=== PATIENT | male | born 1975 | race Caucasian/White ===

== ENCOUNTER 2016-03-14 15:54 | Observation (INO) ==
--- NOTE | 2016-03-14 16:14 | Emergency Department Note ---
Overdose - Lab Data Result diagrams: 03/14/16 17:23 03/14/16 17:23 Lab Results 03/14/16 03/14/16 03/14/16 Range/Units 16:42 16:42 17:23 WBC 11.5 H (4.3-11.1) K/mcL RBC 4.61 (4.19-5.50) M/mcL Hgb 14.4 (12.9-16.9) g/dL Hct 41.8 (37.5-50.1) % MCV 90.7 (83.0-100.0) fL MCH 31.2 (28.0-33.3) pg MCHC 34.4 (31.6-35.5) g/dL RDW 12.5 (11.5-14.5) % Plt Count 173 (140-400) K/mcL MPV 10.3 (9.4-12.4) fL Immature Gran % 0.2 (0-4) % Seg Neutrophils % 78.8 % Lymphocytes % 16.6 % Monocytes % 3.4 % Eosinophils % 0.7 % Basophils % 0.3 % Neutrophils # 9.1 H (1.6-8.9) K/mcL Lymphocytes # 1.9 (0.6-4.6) K/mcL Monocytes # 0.4 (0.0-1.3) K/mcL Eosinophils # 0.1 (0.0-0.6) K/mcL Basophils # 0.0 (0.0-0.2) K/mcL Sodium (136-145) mEq/L Potassium (3.5-4.5) mEq/L Chloride (98-109) mEq/L Carbon Dioxide (19-29) mEq/L BUN (8-26) mg/dL Creatinine (0.72-1.25) mg/dL Est GFR ( Amer) (> 60) Est GFR (Non-Af Amer) (> 60) BUN/Creatinine Ratio (6-26) Glucose (70-99) mg/dL POC Glucose (58-89) Calculated Osmolality (280-300) Calcium (8.6-10.8) mg/dL Total Bilirubin (0.2-1.2) mg/dL Direct Bilirubin (0.0-0.5) mg/dL Indirect Bilirubin (0.0-1.2) mg/dL AST (5-34) Units/L ALT (0-55) Units/L Alkaline Phosphatase (38-126) Units/L Serum Total Protein (6.0-8.3) g/dL Albumin (3.5-5.0) g/dL Globulin (2.4-3.5) g/dL Albumin/Globulin Ratio (1.1-2.2) Urine Color Yellow (Yellow) Urine Clarity Clear (Clear) Urine pH 7.0 (5.0-8.0) pH Units Ur Specific [place] 1.008 L (1.010-1.025) Urine Protein Negative (Neg-Trace) mg/dL Urine Glucose (UA) Normal (Normal) mg/dL Urine Ketones Negative (Negative) mg/dL Urine Blood Negative (Negative) Urine Nitrite Negative (Negative) Urine Bilirubin Negative (Negative) Urine Urobilinogen Normal (Normal) mg/dL Ur Leukocyte Esterase Negative (Negative) Salicylates (15-30) mg/dL Urine Opiates Screen Negative (Nkhduy=878) ng/mL Acetaminophen (10-30) mcg/mL Ur Barbiturates Screen Negative (Zprjxb=431) ng/mL Ur Phencyclidine Scrn Negative (Cutoff=25) ng/mL Ur Amphetamines Screen Negative (Nwaihf=7792) ng/mL U Benzodiazepines Scrn Positive H (Zijylg=955) ng/mL Urine Cocaine Screen Positive H (Cutoff= 300) ng/mL U Marijuana (THC) Screen Negative (Cutoff = 50) ng/mL Ethyl Alcohol (0-10) mg/dL 03/14/16 03/14/16 Range/Units 17:23 17:35 WBC (4.3-11.1) K/mcL RBC (4.19-5.50) M/mcL Hgb (12.9-16.9) g/dL Hct (37.5-50.1) % MCV (83.0-100.0) fL MCH (28.0-33.3) pg MCHC (31.6-35.5) g/dL RDW (11.5-14.5) % Plt Count (140-400) K/mcL MPV (9.4-12.4) fL Immature Gran % (0-4) % Seg Neutrophils % % Lymphocytes % % Monocytes % % Eosinophils % % Basophils % % Neutrophils # (1.6-8.9) K/mcL Lymphocytes # (0.6-4.6) K/mcL Monocytes # (0.0-1.3) K/mcL Eosinophils # (0.0-0.6) K/mcL Basophils # (0.0-0.2) K/mcL Sodium 140 (136-145) mEq/L Potassium 3.7 (3.5-4.5) mEq/L Chloride 108 (98-109) mEq/L Carbon Dioxide 21 (19-29) mEq/L BUN 10 (8-26) mg/dL Creatinine 0.73 (0.72-1.25) mg/dL Est GFR ( Amer) > 60 (> 60) Est GFR (Non-Af Amer) > 60 (> 60) BUN/Creatinine Ratio 14 (6-26) Glucose 124 H (70-99) mg/dL POC Glucose 108 H (58-89) Calculated Osmolality 290 (280-300) Calcium 9.0 (8.6-10.8) mg/dL Total Bilirubin 0.4 (0.2-1.2) mg/dL Direct Bilirubin 0.1 (0.0-0.5) mg/dL Indirect Bilirubin 0.3 (0.0-1.2) mg/dL AST 38 H (5-34) Units/L ALT 51 (0-55) Units/L Alkaline Phosphatase 72 (38-126) Units/L Serum Total Protein 7.1 (6.0-8.3) g/dL Albumin 3.7 (3.5-5.0) g/dL Globulin 3.4 (2.4-3.5) g/dL Albumin/Globulin Ratio 1.1 (1.1-2.2) Urine Color (Yellow) Urine Clarity (Clear) Urine pH (5.0-8.0) pH Units Ur Specific [place] (1.010-1.025) Urine Protein (Neg-Trace) mg/dL Urine Glucose (UA) (Normal) mg/dL Urine Ketones (Negative) mg/dL Urine Blood (Negative) Urine Nitrite (Negative) Urine Bilirubin (Negative) Urine Urobilinogen (Normal) mg/dL Ur Leukocyte Esterase (Negative) Salicylates < 5.0 L (15-30) mg/dL Urine Opiates Screen (Yyulkf=592) ng/mL Acetaminophen < 1.0 L (10-30) mcg/mL Ur Barbiturates Screen (Vofzcx=357) ng/mL Ur Phencyclidine Scrn (Cutoff=25) ng/mL Ur Amphetamines Screen (Fvwlpe=6511) ng/mL U Benzodiazepines Scrn (Dejkpi=846) ng/mL Urine Cocaine Screen (Cutoff= 300) ng/mL U Marijuana (THC) Screen (Cutoff = 50) ng/mL Ethyl Alcohol < 10 (0-10) mg/dL - EKG Data EKG attestation: Yes I reviewed and interpreted this EKG. EKG results narrative: EKG dated 14 Mar 2016 shows sinus rhythm with rate of 90. Normal intervals. Normal QRS. Normal axis. Tallest T-wave in precordial leads is 10mm. No previous EKG for comparison. Electrolytes pending. Overdose HPI - General Chief Complaint: ED Overdose Stated Complaint: overdose Source: EMS Limitations: altered mental status Nursing Notes Reviewed: Yes Vital Signs Reviewed: Yes - History of Present Illness HPI Narrative: Mr. Davalos, a 40yo male, presents via EMS with reported complaint: altered mentation, deafness, blindness. Patient is alone. History from EMS per patient 's girlfriend. Patient was using heroin and xanax last night. They were at [employer] today, he disappeared for a while and returned in his current state: confused, claiming blindness and deafness. At baseline, patient wears hearing aids. He has his right side hearing aid in his pocket. EMS attempted to place it into his ear however he repeatedly removed it. - Related Data Allergies Allergy/AdvReac Type Severity Reaction Status Date / Time No Known Allergies Allergy Verified 12/13/15 22:21 Limitations: ROS unobtainable due to patients medical condition Past Medical History - Past Medical History Medical history: Reports: non-contributory Psychiatric history: Reports: no psych history - Social History Smoking Status: Current every day smoker Smokeless Tobacco Status: No Alcohol use: Reports: none Drug use: Reports: cocaine, IVDU Physical Exam General: Patient is disheveled, alert, not oriented, in no acute distress. HEENT: No facial asymmetry. Head is normocephalic and atraumatic. Pupils pinpoint and fixed. Trachea midline. Cardiovascular: Heart regular rate and rhythm without clicks, rubs, gallops, or murmurs. No JVD. PMI nondisplaced. Respiratory: Symmetric chest rise with good respiratory effort. Bilateral breath sounds are clear without wheezing, crackles, or rhonchi. Abdomen: Bowel sounds present normoactive -4 quadrants. Abdomen is soft, nondistended, and nontender. No organomegaly noted. Musculoskeletal: Muscle strength 5/5 and symmetric bilaterally in upper and lower extremities. DTRs 2/4 and symmetric bilaterally in upper and lower extremities. Neuro: Cranial nerves II through XII without deficit. Sensation light touch intact. Psych: Patient's affect is appropriate for situation. - General Limitations: altered mental status General appearance: alert, in no apparent distress Course Course Narrative: On arrival, patient was slightly combative. He repeatedly stated, "I'm coherent " "I'm hydrated. I have cotton mouth. Give me something to drink." He was able to look at specific caregivers bedside as we were assessing him. He would occasionally answer direct questions. He could not state what he took or why he was here. We brought a cup of icewater with straw and showed him. He repeatedly refused, eventually swinging his arms and spilling some of the water out of a nurses hand and onto himself. Patient repeatedly stated he could not hear however his hearing aid was confirmed on, turned up, and properly placed in his ear. He again would occasionally answer verbal questions indicating he could in fact hear. Additionally, he would make specific comments on what he saw around him indicating he could also see. We continued to talk to him, explaining what we were doing and why. Continuing to ask questions to gain additional history. Security is bedside. Prior to placing IV, gave patient 2mg intranasal narcan in an attempt to calm him. Prior to administration, his pupils were fixed pinpoint. No change in pupils or affect after administration. Top of my differential is polysubstance abuse. Will perform combination of overdose and altered mentation workup looking for alternate cause of his change in mental status. As evidenced by multiple scars on both arms along venous pathways, patient has a history of IV drug abuse. As such, nursing was unable to obtain IV access peripherally for blood draw even with the use of ultrasound. Peripheral access for infusion was obtained. I performed a femoral vein draw under sterile technique under the supervision of Dr. Crowell to obtain serum laboratory samples. POC glucose 108 Labwork has returned. CBC and BMP unremarkable. Urine drug screen positive for cocaine and benzos. CT head negative. Head CT 03/14/16 16:10 IMPRESSION: No acute intracranial abnormality. D/ / Jorge Luis Pagan MD / Jorge Luis Pagan MD Interpreting Provider: Jorge Luis Pagan MD 16:30, 19:00, 19:20 Have reassess the patient; he remains comfortable, sleeping, vitals stable. Will page hospitalist for admission. Reason: polysubstance abuse with overdose , altered mentation, suggested psychiatric evaluation. Patient has been and remains stable. 19:[address] Mcfarland. She accepts the patient. No additional questions or recommendations at this time. Vital Signs Temperature 0 F L 03/14/16 15:58 Pulse Rate 0 03/14/16 15:58 Respiratory Rate 20 03/14/16 15:58 Blood Pressure 0/0 03/14/16 15:58 O2 Sat by Pulse Oximetry 0 L 03/14/16 15:58 Temperature 98.8 F 03/14/16 17:06 Pulse Rate 84 03/14/16 18:49 Respiratory Rate 95 03/14/16 18:49 Blood Pressure 105/70 03/14/16 18:49 O2 Sat by Pulse Oximetry 98 03/14/16 18:49 Oxygen Delivery Oxygen Delivery Room Air Disposition Clinical Impression: Overdose Qualifiers: Encounter type: initial encounter Injury intent: accidental or unintentional Qualified Code(s): T50.901A - Poisoning by unspecified drugs, medicaments and biological substances, accidental (unintentional), initial encounter Disposition: Admitted As Inpatient Condition: Fair Attestation Statement - Attestation Attestation: Patient was seen with resident physician. I reviewed the history, physical, assessment and plan, and agree with the findings. I also personally evaluated this patient and had [id number] time with this patient. 40-year-old male presents via EMS with a chief complaint of not acting right. Patient has known heroin addict and presents with altered mental status. History from EMS who is from his significant other states that last night they were partying at a house with a head heroin and Xanax, and then today he disappeared and came back with altered mental status. She is not sure if he ingested any other drugs. Patient repeatedly states that he is thirsty but refuses to take water and is somewhat uncooperative providing 0 history whatsoever. On examination patient' s agitated he has pinpoint pupils. His heart and lungs are normal. Abdomen is soft and nontender. Extremities are unremarkable. There is no obvious signs of traumatic injury. We will attempt to give Narcan and see the patient is just agitated from being high. [facility] is [facility] We will also do a pretty thorough workup to look for traumatic injuries or other causes of mental status change. First on differential would be polysubstance abuse. Pending the findings of the workup will determine disposition. Patient was eventually able to be medically sedated. His workup revealed cocaine and benzodiazepine abuse. He continued to have mental status change even in the face of a normal workup, and was not ready for disposition to home. We opted to admit the patient to hospital for a 24-hour observation and additional medical therapies as indicated, as well as medical observation. Hospitalist was notified and admission was arranged. I agree with resident physician assessment and plan.
[2016-03-14] MEDS ORDERED: Haloperidol Lactate 5 MG/ML VIAL ONE (16:30)
[2016-03-14] MEDS ORDERED: Haloperidol Lactate 5 MG/ML VIAL IM ONE (16:30)
[2016-03-14 16:52] LABS: Bilirubin,Urine Negative (Negative); Blood,Urine Negative (Negative); Clarity,Urine Clear (Clear); Color,Urine Yellow (Yellow); Glucose,Urine (UA) Normal (Normal); Ketones,Urine Negative (Negative); Leukocyte Esterase,Urine Negative (Negative); Nitrite,Urine Negative (Negative); Protein,Urine Negative (Neg-Trace); Specific Gravity,Urine 1.008 (1.010-1.025); Urobilinogen,Urine Normal (Normal)
[2016-03-14 16:59] LABS: Amphetamine Screen,Urine Negative ng/mL (Cutoff=1000); Barbiturate Screen,Urine Negative ng/mL (Cutoff=200); Benzodiazepines Screen,Urine Positive ng/mL (Cutoff=200); Cannabinoid Screen,Urine Negative ng/mL (Cutoff = 50); Cocaine Screen,Urine Positive ng/mL (Cutoff= 300); Opiate Screen,Urine Negative ng/mL (Cutoff=300); Phencyclidine Screen,Urine Negative ng/mL (Cutoff=25)
[2016-03-14] MEDS ORDERED: 0.9 % Sodium Chloride 1,000 ML IVC ONE (17:28)
[2016-03-14] MEDS ORDERED: *HR* LORazepam 2 MG/ML VIAL IVP ONE (17:29)
[2016-03-14 17:43] LABS: Basophils % 0.3 %; Eosinophils # 0.1 K/mcL (0.0-0.6); Eosinophils % 0.7 %; Hematocrit 41.8 % (37.5-50.1); Hemoglobin 14.4 g/dL (12.9-16.9); Immature Granulocytes % 0.2 % (0-4); Lymphocytes # 1.9 K/mcL (0.6-4.6); Lymphocytes % 16.6 %; Mean Corpuscular HGB Conc 34.4 g/dL (31.6-35.5); Mean Corpuscular Hemoglobin 31.2 pg (28.0-33.3); Mean Corpuscular Volume 90.7 fL (83.0-100.0); Mean Platelet Volume 10.3 fL (9.4-12.4); Monocytes # 0.4 K/mcL (0.0-1.3); Monocytes % 3.4 %; Neutrophils # 9.1 K/mcL (1.6-8.9); Platelet Count 173 K/mcL (140-400); Red Blood Count 4.61 M/mcL (4.19-5.50); Red Cell Distribution Width 12.5 % (11.5-14.5); Segmented Neutrophils % 78.8 %
[2016-03-14 17:54] LABS: Alanine Aminotransferase 51 Units/L (0-55); Albumin 3.7 g/dL (3.5-5.0); Albumin/Globulin Ratio 1.1 (1.1-2.2); Alkaline Phosphatase 72 Units/L (38-126); Aspartate Amino Transferase 38 Units/L (5-34); BUN/Creatinine Ratio 14 (6-26); Bilirubin,Direct 0.1 mg/dL (0.0-0.5); Bilirubin,Indirect 0.3 mg/dL (0.0-1.2); Bilirubin,Total 0.4 mg/dL (0.2-1.2); Blood Urea Nitrogen 10 mg/dL (8-26); Carbon Dioxide 21 mEq/L (19-29); Chloride 108 mEq/L (98-109); Globulin 3.4 g/dL (2.4-3.5); Glucose 124 mg/dL (70-99); Osmolality,Calculated 290 (280-300); Potassium 3.7 mEq/L (3.5-4.5); Sodium 140 mEq/L (136-145); Total Protein 7.1 g/dL (6.0-8.3); eGFR For African Americans > 60 (> 60); eGFR For Non-African Americans > 60 (> 60)
[2016-03-14 17:55] LABS: Acetaminophen < 1.0 mcg/mL (10-30); Ethanol < 10 mg/dL (0-10); Salicylate < 5.0 mg/dL (15-30)
[2016-03-14] MEDS ORDERED: Pantoprazole 40 MG VIAL IVP STA (19:47)
[2016-03-14] MEDS ORDERED: *HR* LORazepam 2 MG/ML VIAL IVP PRN (19:47)
[2016-03-14] MEDS ORDERED: Haloperidol Lactate 5 MG/ML VIAL IVP PRN (19:47)
[2016-03-14] MEDS ORDERED: Acetaminophen 325 MG TABLET PO PRN (19:47)
[2016-03-14] MEDS ORDERED: Naloxone 0.4 MG/ML INJ IVP PRN (19:47)
[2016-03-14] MEDS ORDERED: Mag Hydrox/Al Hydrox/Simeth 30 ML UDC PO PRN (19:47)
[2016-03-14] MEDS ORDERED: Ketorolac 30 MG/ML VIAL IVP PRN (19:47)
[2016-03-14] MEDS ORDERED: Albuterol 2.5 MG/3 ML NEBULIZER IH PRN (19:47)
--- NOTE | 2016-03-14 20:12 | Internal Med History&Physical ---
Date of Encounter: 03/14/16 Time of Encounter: 19:30 Assessment and Plan (1) Polysubstance dependence including opioid type drug, episodic abuse Status: Chronic . (2) Toxic metabolic encephalopathy Status: Resolved . (3) Delirium due to conditions classified elsewhere Status: Acute . (4) Positive urine drug screen Status: Acute . (5) Drug overdose, multiple drugs Status: Acute . Qualifiers: Encounter type: initial encounter Injury intent: accidental or unintentional Qualified Code(s): T50.901A - Poisoning by unspecified drugs, medicaments and biological substances, accidental (unintentional), initial encounter (6) IVDU (intravenous drug user) Status: Chronic . (7) Wears hearing aid in both ears Status: Chronic . (8) SIRS due to non-infectious process without acute organ dysfunction Status: Acute . (9) Transaminitis Status: Acute . (10) Neutrophilic leukocytosis Status: Acute . (11) Hyperglycemia without ketosis Status: Acute . (12) Chronic pain associated with significant psychosocial dysfunction Status: Chronic . (13) Hypertension Status: Chronic . Qualifiers: Hypertension type: essential hypertension Qualified Code(s): I10 - Essential (primary) hypertension (14) Degenerative arthritis Status: Chronic . Qualifiers: Osteoarthritis location: unspecified site Osteoarthritis type: unspecified Qualified Code(s): M19.90 - Unspecified osteoarthritis, unspecified site Internal Medicine - H&P: HPI Chief complaint: Altered mental status. Admitted From: Emergency Dept Plans for Post Hospital Care: Home History of present illness: Mr. Davalos is a 40 year old male with history significant for congenital hearing loss/bilateral hearing aid dependent, hypertension, degenerative osteoarthritis/chronic musculoskeletal pain syndrome, generalized anxiety disorder, H/o MRSA infection, polysubstance dependency-abuse (cocaine, benzodiazepines, opiates)/IVDU and non-IVDU, nicotine dependency The patient was visited and interviewed and examined. Patient is acutely intoxicated/encephalopathic and delirious secondary to polysubstance overdose. Historical details collected from EMS triage, ED triage and information provided by patient's female conjugal partner. Patient is admitted to [facility] via the emergency department when he presents by EMS services with acute alteration in mental status. Patient possesses congenital hearing loss in his hearing aid dependent and claims blindness. He presents a history of heroin use and Xanax usage night of presentation. He is acutely intoxicated.. It is reported that he and his girlfriend without dominant AND he disappeared for a while and when he returned he was in this current state of confusion blind and deaf. Nose and at baseline he does wear bilateral hearing aids. Findings in the ED: Temperature 98.8 pulse 84 respirations 20 BP 105/70. O2 saturation 98% per room air. WBC 11.5 hemoglobin 14.4 platelets 173,000. Differential showed an increase in neutrophils. Metabolic panel normal. BUN 10 creatinine 0.7. Carbon dioxide 21. Glucose 124. Osmolality 290. AST 38 ALT 51. Albumin 3.7 total 7.1. Salicylates less than 5. Acetaminophen less than 1. Ethyl alcohol less than 10. EKG sinus rhythm. 90 bpm. No acute ischemic changes. Urinalysis negative. Urine drug screen positive benzodiazepine and cocaine. CT head scan demonstrated no acute intracranial abnormality. No evidence for hemorrhage mass effect or midline shift fluid collection hydrocephalus noted. No evidence for visualized skull soft tissue injury or fracture. Preliminary impression suggests acute toxic metabolic encephalopathy with delirium. The patient presents with recreational drug overdose. This was unintentional with no evidence to suggest ideation/efforts motivated for self- harm. History unfortunately highlights several episodes like this acute narcotic overdose requiring hospitalization supportive care interventions and acute detoxification. His presentation is complicated by congenital hearing loss and legal blindness Systemic inflammatory response syndrome criteria and present at admission. Transaminitis leukocytosis and hyperglycemia demonstrated as part of inflammatory cascade. The patient presents risk for acute clinical decline and morbidity given his presenting chief complaints, findings and comorbid conditions. Workup and treatment progress comprehensively.. Cumulative laboratory and radiographic data base was reviewed, considered and discussed. Pertinent ancillary medical records including ECW and PCI documentation was reviewed and considered. Given the patient's presenting concerns, past medical history, clinical findings and symptoms, he is admitted at this time will undergo further evaluation and disposition. Orders were written as per the computerized physician emergency room orderly system.......................................................................... .................... Consultative opinions will be sought as clinical circumstances justify. Procedures/case management consultation. Pain management needs will be addressed. Laboratory and radiographic data base will be updated as appropriate. Studies include: Cultures of blood urine and sputum, UA UDS, serum drug screen, CPK, LDH , prolactin, cardiac injury panel, BNP, PT/INR/APTT, Ddimer, metabolic and hematologic panel, mag, phos, ionized calcium, thyroid panel, lipid profile, A1c , C-peptide, CRP, sed rate, respiratory virus panel, blood gas, lactic acid, ETOH, ASA, APAP, RPR, viral hep profile, serologies, etc. Precautions: Aspiration, fall, seizure, delirium protocol/surveillance initiated. Telemetry with continuous hemodynamic monitoring and pulse oximetry initiated. Empiric antibiotic coverage: pending diagnostic/culture data. Special studies: CT head, chest x-ray, telemetry, EKG. Pulmonary toilet: Incentive spirometry. Aerosol bronchodilator, mucolytic, antitussivePRN. Supplemental oxygen. Corticosteroid therapyPRN. CPAP/BiPAP supplemental oxygen deliveryPRN. Aerosol Mucomyst therapyPRN.. Fluid and electrolyte repletion efforts will proceed. Careful attention to fluid balance and renal recovery will be emphasized. Avoidance of nephrotoxic exposure and adverse drug drug interaction in the setting of impaired renal function will be monitored closely. Acute coronary syndrome protocol/surveillance initiated. Acute [employer] BUILDER injury protocol/surveillance initiated. Acute alcohol withdrawal/detoxification protocols initiated empirically. Modified CIWA/SAS guidelines and acute delirium guidelines initiated. DVT and PUD prophylaxis initiated: PPI therapy, intermittent pneumatic cuffs. Subcutaneous heparin/Lovenox. Early ambulation will be encouraged. Immunization updates recommended. Influenza and pneumococcal vaccinations as part of ongoing preventative healthcare recommendations strongly recommended. Smoking cessation counseling briefly addressed. Patient will be provided nicotine substitution during this hospitalization.. Advanced care directive discussion briefly addressed. Patient does not declare any healthcare restrictions at this time. Cardiovascular risk appraisal and cardiovascular risk reduction efforts will be emphasized. Physical occupational therapy may be counseled to evaluate patient's function capacity and progressive mobility of her circumstances justify. Nutrition/dietary education counseling may be considered as circumstances justify. Outpatient medication schedules will be reviewed confirmed and facilitated as appropriate. Reconciliation of home treatments including adjustment substitutions and reintroduction into the treatment regimen as necessary maintenance therapies for chronic pre-existing medical conditions. Plan of care has been reviewed and discussed in detail with the patient. Questions addressed. Hospital course and clinical findings, treatment response and potential consultative interventions. Patient is a risk for further acute clinical decline due to her age, chief complaints and comorbid conditions. Condition is serious. Prognosis is guarded. CODE STATUS is full. Past Med Surg Social Fam HX - Past Medical History Source: old records reviewed Medical history: arthritis, hypertension, other (Chronic musculoskeletal pain syndrome. H/O MRSA infection. H/O polysubstance abuse/IVDU and non-IVDU. Hearing aid dependent as well as reads lips. [id number] since ) Psychiatric history: anxiety, other - Past Surgical History Surgical History: orthopedic, other (Right shoulder surgery.), other - Social History Smoking Status: Current every day smoker Packs per day: 1+ppd Smokeless Tobacco Status: No Alcohol use: occasionally Drug use: cocaine, opiates, IVDU Occupational status: unemployed, disabled Current living situation: Home - Independent Activity Level: Mostly sedentary Recent Out of Country Travel Within the Last 8 Weeks: No Exposure or Possible Exposure to Illness During Travel: No Internal Medicine - H&P: Meds No Known Home Drugs 03/15/16 [History] Allergies No Known Allergies Allergy (Verified 12/13/15 22:21) ROS unobtainable: due to mental status All Systems PM: A 10-system review of systems was performed and is negative for pertinent findings except as documented above in the HPI. Patient presents with apparent toxic encephalopathy. Delirious. Hearing aid dependent, congenital hearing loss. Details of history garnered through EMS triage, Friends/family, records. - Constitutional Constitutional: as per HPI - EENT Eyes: as per HPI Ears: as per HPI Nose, mouth and throat: as per HPI - Cardiovascular Cardiovascular ROS IM: as per HPI - Respiratory Respiratory: as per HPI - Gastrointestinal Gastrointestinal: as per HPI - Genitourinary Genitourinary ROS male: as per HPI - Musculoskeletal Musculoskeletal ROS IM: as per HPI - Integumentary Integumentary IM: as per HPI - Neurological Neurological ROS: as per HPI - Psychiatric Psychiatric: as per HPI - Endocrine Endocrine IM: as per HPI - Hematologic/Lymphatic Hematologic/Lymphatic: as per HPI - Allergic/Immunologic Allergic/Immunologic: as per HPI - Constitutional Vitals: Temp Pulse Resp BP Pulse Ox 98.8 F 84 95 105/70 98 03/14/16 17:06 03/14/16 18:49 03/14/16 18:49 03/14/16 18:49 03/14/16 18:49 General appearance: Present: A&O X 1, disheveled, mild distress, obese. Absent : cooperative - Head Head exam: Present: atraumatic, normocephalic - Eye Eye exam: Present: EOMI, PERRL, conjuntiva pink, sclera anicteric Pupils: Present: fixed, miosis, normal accommodation, PERRL - ENT ENT exam: Present: mucous membranes moist, normal oropharynx - Neck Neck exam general surgery: Present: full ROM, supple, trachea midline. Absent: lymphadenopathy, tenderness, nuchal rigidity - Respiratory Respiratory exam: Present: decreased breath sounds, CTAB, rhonchi. Absent: accessory muscle use, rales, wheezes - Cardiovascular Cardiovascular exam: Present: distant heart sounds, RRR, +S1, +S2. Absent: diastolic murmur, gallop, rubs, systolic murmur - GI/Abdominal GI/Abdominal exam: Present: normal bowel sounds, soft, no peritoneal signs. Absent: distended, tenderness - Extremities Exam Extremities exam: Present: full ROM, warm, radial pulses palpable and symetrical. Absent: calf tenderness, cyanotic, pedal edema - Neurological Exam Neurological exam: Present: alert, altered, motor sensory deficit, no focal deficits. Absent: CN II-XII intact (congenital deafness; legal blindness), oriented X3, pronater drift, facial droop, speech deficit - Expanded Neurological Exam Coma Scale Eye Opening: To Pain Coma Scale Motor Response: Withdraws to Pain Coma Scale Verbal Response: Inappropriate Coma Scale Total: 9 - Psychiatric Psychiatric exam: Present: agitated, flat affect - Skin Skin exam: Present: dry, intact, warm Internal Med - H&P Results - Labs CBC & Chem 7: 03/15/16 08:16 03/15/16 07:05 - Impressions Vital Signs Temp Pulse Resp BP Pulse Ox 03/14/16 18:49 84 95 105/70 98 03/14/16 18:26 64 20 122/81 99 03/14/16 17:30 82 20 115/74 99 03/14/16 17:06 98.8 F 100 20 123/75 99 03/14/16 15:58 0 F L 0 20 0/0 0 L Intake and Output 03/14/16 03/14/16 03/14/16 07:59 15:59 23:59 Intake Total 1000 / 1000 Balance 1000 / 1000 Intake: IV Fluids 1000 / 1000 0.9 % Sodium Chloride 1, 1000 / 1000 000 ML @ 3750 mls/hr IVC .Q16M ONE Rx#:[id number] Other: Weight 68.039 kg Blood Glucose* 108 Patient Weight 03/14/16 23:59 Weight 68.039 kg Short CBC 03/14/16 Range/Units 17:23 WBC 11.5 H (4.3-11.1) K/mcL Hgb 14.4 (12.9-16.9) g/dL Hct 41.8 (37.5-50.1) % Plt Count 173 (140-400) K/mcL Neutrophils # 9.1 H (1.6-8.9) K/mcL BMP 03/14/16 Range/Units 17:23 Sodium 140 (136-145) mEq/L Potassium 3.7 (3.5-4.5) mEq/L Chloride 108 (98-109) mEq/L Carbon Dioxide 21 (19-29) mEq/L BUN 10 (8-26) mg/dL Creatinine 0.73 (0.72-1.25) mg/dL Glucose 124 H (70-99) mg/dL Calcium 9.0 (8.6-10.8) mg/dL Liver Function 03/14/16 Range/Units 17:23 Total Bilirubin 0.4 (0.2-1.2) mg/dL Direct Bilirubin 0.1 (0.0-0.5) mg/dL AST 38 H (5-34) Units/L ALT 51 (0-55) Units/L Alkaline Phosphatase 72 (38-126) Units/L Albumin 3.7 (3.5-5.0) g/dL Urine 03/14/16 Range/Units 16:42 Urine Color Yellow (Yellow) Urine Clarity Clear (Clear) Urine pH 7.0 (5.0-8.0) pH Units Ur Specific [place] 1.008 L (1.010-1.025) Urine Protein Negative (Neg-Trace) mg/dL Urine Glucose (UA) Normal (Normal) mg/dL Abnormal lab results WBC 11.5 K/mcL (4.3-11.1) H 03/14/16 17:23 Neutrophils # 9.1 K/mcL (1.6-8.9) H 03/14/16 17:23 Glucose 124 mg/dL (70-99) H 03/14/16 17:23 POC Glucose 108 (58-89) H 03/14/16 17:35 AST 38 Units/L (5-34) H 03/14/16 17:23 Ur Specific [place] 1.008 (1.010-1.025) L 03/14/16 16:42 Salicylates < 5.0 mg/dL (15-30) L 03/14/16 17:23 Acetaminophen < 1.0 mcg/mL (10-30) L 03/14/16 17:23 U Benzodiazepines Scrn Positive ng/mL (Ilfinq=475) H 03/14/16 16:42 Urine Cocaine Screen Positive ng/mL (Cutoff= 300) H 03/14/16 16:42 Allergies Allergy/AdvReac Type Severity Reaction Status Date / Time No Known Allergies Allergy Verified 12/13/15 22:21 Laboratory Results WBC 11.5 K/mcL (4.3-11.1) H 03/14/16 17:23 RBC 4.61 M/mcL (4.19-5.50) 03/14/16 17:23 Hgb 14.4 g/dL (12.9-16.9) 03/14/16 17:23 Hct 41.8 % (37.5-50.1) 03/14/16 17:23 MCV 90.7 fL (83.0-100.0) 03/14/16 17: MCH 31.2 pg (28.0-33.3) 03/14/16 17: MCHC 34.4 g/dL (31.6-35.5) 03/14/16 17:23 RDW 12.5 % (11.5-14.5) 03/14/16 17:23 Plt Count 173 K/mcL (140-400) 03/14/16 17:23 MPV 10.3 fL (9.4-12.4) 03/14/16 17:23 Immature Gran % 0.2 % (0-4) 03/14/16 17: Seg Neutrophils % 78.8 % 03/14/16 17:23 Lymphocytes % 16.6 % 03/14/16 17: Monocytes % 3.4 % 03/14/16 17:23 Eosinophils % 0.7 % 03/14/16 17:23 Basophils % 0.3 % 03/14/16 17:23 Neutrophils # 9.1 K/mcL (1.6-8.9) H 03/14/16 17:23 Lymphocytes # 1.9 K/mcL (0.6-4.6) 03/14/16 17:23 Monocytes # 0.4 K/mcL (0.0-1.3) 03/14/16 17: Eosinophils # 0.1 K/mcL (0.0-0.6) 03/14/16 17:23 Basophils # 0.0 K/mcL (0.0-0.2) 03/14/16 17:23 Sodium 140 mEq/L (136-145) 03/14/16 17:23 Potassium 3.7 mEq/L (3.5-4.5) 03/14/16 17:23 Chloride 108 mEq/L (98-109) 03/14/16 17:23 Carbon Dioxide 21 mEq/L (19-29) 03/14/16 17:23 BUN 10 mg/dL (8-26) 03/14/16 17:23 Creatinine 0.73 mg/dL (0.72-1.25) 03/14/16 17:23 Est GFR ( Amer) > 60 (> 60) 03/14/16 17:23 Est GFR (Non-Af Amer) > 60 (> 60) 03/14/16 17:23 BUN/Creatinine Ratio 14 (6-26) 03/14/16 17:23 Glucose 124 mg/dL (70-99) H 03/14/16 17:23 POC Glucose 108 (58-89) H 03/14/16 17:35 Calculated Osmolality 290 (280-300) 03/14/16 17: Calcium 9.0 mg/dL (8.6-10.8) 03/14/16 17:23 Total Bilirubin 0.4 mg/dL (0.2-1.2) 03/14/16 17:23 Direct Bilirubin 0.1 mg/dL (0.0-0.5) 03/14/16 17:23 Indirect Bilirubin 0.3 mg/dL (0.0-1.2) 03/14/16 17:23 AST 38 Units/L (5-34) H 03/14/16 17:23 ALT 51 Units/L (0-55) 03/14/16 17:23 Alkaline Phosphatase 72 Units/L (38-126) 03/14/16 17:23 Serum Total Protein 7.1 g/dL (6.0-8.3) 03/14/16 17:23 Albumin 3.7 g/dL (3.5-5.0) 03/14/16 17:23 Globulin 3.4 g/dL (2.4-3.5) 03/14/16 17:23 Albumin/Globulin Ratio 1.1 (1.1-2.2) 03/14/16 17:23 Urine Color Yellow (Yellow) 03/14/16 16:42 Urine Clarity Clear (Clear) 03/14/16 16:42 Urine pH 7.0 pH Units (5.0-8.0) 03/14/16 16:42 Ur Specific [place] 1.008 (1.010-1.025) L 03/14/16 16:42 Urine Protein Negative mg/dL (Neg-Trace) 03/14/16 16:42 Urine Glucose (UA) Normal mg/dL (Normal) 03/14/16 16:42 Urine Ketones Negative mg/dL (Negative) 03/14/16 16:42 Urine Blood Negative (Negative) 03/14/16 16:42 Urine Nitrite Negative (Negative) 03/14/16 16:42 Urine Bilirubin Negative (Negative) 03/14/16 16:42 Urine Urobilinogen Normal mg/dL (Normal) 03/14/16 16:42 Ur Leukocyte Esterase Negative (Negative) 03/14/16 16:42 Salicylates < 5.0 mg/dL (15-30) L 03/14/16 17:23 Urine Opiates Screen Negative ng/mL (Mdudvm=577) 03/14/16 16:42 Acetaminophen < 1.0 mcg/mL (10-30) L 03/14/16 17:23 Ur Barbiturates Screen Negative ng/mL (Oqfchw=732) 03/14/16 16:42 Ur Phencyclidine Scrn Negative ng/mL (Cutoff=25) 03/14/16 16:42 Ur Amphetamines Screen Negative ng/mL (Odjsqw=6843) 03/14/16 16:42 U Benzodiazepines Scrn Positive ng/mL (Okytcb=421) H 03/14/16 16:42 Urine Cocaine Screen Positive ng/mL (Cutoff= 300) H 03/14/16 16:42 U Marijuana (THC) Screen Negative ng/mL (Cutoff = 50) 03/14/16 16:42 Ethyl Alcohol < 10 mg/dL (0-10) 03/14/16 17:[address] 03/14/16 16:10 IMPRESSION: No acute intracranial abnormality. D/ / Jorge Luis Pagan MD / Jorge Luis Pagan MD Interpreting Provider: Jorge Luis Pagan MD
[2016-03-14] MEDS: 0.9 % Sodium Chloride 1,000 ML IVC SCH (20:47)
[2016-03-14] MEDS: Nicotine 21 MG PATCH.TD24 TD SCH (20:47)
[2016-03-14] MEDS: NALOXONE IVC SCH (20:57)
[2016-03-14] MEDS: SODIUM CHLORIDE 0.9% IVC SCH (20:57)
[2016-03-14 21:12] LABS: VBG HCO3 28.2 mEq/L (21-27); VBG PH 7.35 pH Units (7.32-7.42)
[2016-03-14 21:20] LABS: Ionized Calcium 1.17 mmol/L (1.15-1.35)
[2016-03-14 21:27] LABS: Magnesium 2.1 mg/dL (1.6-2.6); Phosphorous 2.8 mg/dL (2.3-4.7)
[2016-03-14 21:47] LABS: Prolactin 35.65 ng/mL (3.46-19.40)
[2016-03-15] MEDS: SODIUM CHLORIDE 0.9% IVC SCH ×2 (00:31→03:54)
[2016-03-15] MEDS: NALOXONE IVC SCH ×2 (00:31→03:54)
[2016-03-15] MEDS: 0.9 % Sodium Chloride 1,000 ML IVC SCH ×2 (03:29→10:28)
[2016-03-15] MEDS ORDERED: Famotidine 20 MG/2 ML VIAL IVP SCH (06:00)
[2016-03-15] MEDS ORDERED: *HR* Enoxaparin 40 MG/0.4 ML SYRINGE SQ SCH (06:00)
[2016-03-15 07:49] LABS: Alanine Aminotransferase 48 Units/L (0-55); Albumin 3.3 g/dL (3.5-5.0); Albumin/Globulin Ratio 1.1 (1.1-2.2); Alkaline Phosphatase 69 Units/L (38-126); Aspartate Amino Transferase 46 Units/L (5-34); BUN/Creatinine Ratio 15 (6-26); Blood Urea Nitrogen 10 mg/dL (8-26); Calcium 8.9 mg/dL (8.6-10.8); Carbon Dioxide 17 mEq/L (19-29); Chloride 113 mEq/L (98-109); Globulin 3.1 g/dL (2.4-3.5); Glucose 90 mg/dL (70-99); Osmolality,Calculated 287 (280-300); Potassium 3.8 mEq/L (3.5-4.5); Sodium 139 mEq/L (136-145); Total Protein 6.4 g/dL (6.0-8.3); eGFR For African Americans > 60 (> 60); eGFR For Non-African Americans > 60 (> 60)
[2016-03-15 07:51] LABS: Bilirubin,Total 0.9 mg/dL (0.2-1.2)
[2016-03-15 08:13] LABS: Thyroid Stimulating Hormone 0.243 mcIU/mL (0.350-4.840); Triiodothyronine (T3) Free 2.77 pg/mL (1.71-3.71)
[2016-03-15] MEDS: Nicotine 21 MG PATCH.TD24 TD SCH (08:19)
[2016-03-15 08:23] LABS: Hematocrit 41.8 % (37.5-50.1); Hemoglobin 14.3 g/dL (12.9-16.9); Mean Corpuscular HGB Conc 34.2 g/dL (31.6-35.5); Mean Corpuscular Hemoglobin 31.1 pg (28.0-33.3); Mean Corpuscular Volume 90.9 fL (83.0-100.0); Mean Platelet Volume 10.1 fL (9.4-12.4); Platelet Count 163 K/mcL (140-400); Red Cell Distribution Width 12.5 % (11.5-14.5)
[2016-03-15 08:28] LABS: INR 1.1; Prothrombin Time 12.4 Seconds (9.4-12.1)
[2016-03-15 08:33] LABS: Activated Partial Thrombo Time 32.9 Seconds (26.0-36.0)
[2016-03-15] MEDS ORDERED: Vitamin B Complex/Vit C/Vit E 1 EACH TABLET PO SCH (09:00)
[2016-03-15] MEDS ORDERED: Thiamine (B-1) 100 MG TABLET PO SCH (09:00)
[2016-03-15] MEDS ORDERED: Folic Acid 1 MG TABLET PO SCH (09:00)
[2016-03-15 11:15] VITALS: BP 127/83
--- NOTE | 2016-03-15 14:31 | Discharge Summary ---
Date of Encounter: 03/15/16 Time of Encounter: 11:00 - Discharge Diagnosis (1) Drug overdose, multiple drugs Priority: Primary Status: Acute Qualifiers: Encounter type: initial encounter Injury intent: accidental or unintentional Qualified Code(s): T50.901A - Poisoning by unspecified drugs, medicaments and biological substances, accidental (unintentional), initial encounter (2) Toxic metabolic encephalopathy Priority: Primary Status: Resolved (3) Degenerative arthritis Priority: Secondary Status: Chronic Qualifiers: Osteoarthritis location: unspecified site Osteoarthritis type: unspecified Qualified Code(s): M19.90 - Unspecified osteoarthritis, unspecified site (4) IVDU (intravenous drug user) Priority: Primary Status: Chronic - Discharge Medications Home Medications: No Known Home Drugs 03/15/16 [History] Allergies/Adverse Reactions: Allergies No Known Allergies Allergy (Verified 12/13/15 22:21) Date of admission: 03/15/16 05:18 Primary care physician: PCP NO Discharging clinician: Ciara Hdz Anticipated date of discharge: 03/15/16 - Patient Status Disposition: Home, Self-Care Condition: Good Functional capacity at discharge: independent ambulation Overall status at discharge: patient is back to baseline - Discharge Instructions Follow Up With: NO,PCP [Primary Care Provider] - (F/U APPT REQUESTED FROM [facility].) Additional Instructions: F/up with PCP in 2-3 weeks F/up with substance abuse counseling/rehab - Diet and Activity Activity: resume usual activities as tolerated Diet: advance to your usual diet, low salt diet (abstinence from smoking, alcohol and drug abuse) Hospital course: Mr. Davalos is a 40 year old male with history of congenital deafness and chronic IV drug abuse was brought in by his girlfriend with complaints of Altered mental status. He is known to be having polysubstance abuse including IV heroin use and noted to have multiple track wade on bilateral extremities. His basic labs showed no acute abnormality. Chest x-ray showed no evidence of pneumonia. He was noted to be slightly combated, confused and disoriented in the emergency room and slept throughout the night since admission. He initially required supplemental oxygen via nasal cannula due to his altered mental status. On my evaluation this morning, patient is noted to be alert and oriented, able to state his name and that he is in the hospital due to overdosing on heroin. He does report that he is looking for a Suboxone clinic and he would like to be de-addicted from Heroin. He is being provided with information regarding resources for substance abuse/counseling/rehabilitation. Patient is currently able to tolerate oral diet, ambulating well, not requiring supplemental oxygen and hemodynamically stable. Patient was noted to have received a pink slip, probably in the emergency room. Review of previous doctor's notes did not reveal any indication for this and he is currently at baseline mental status, psychiatric evaluation is not indicated at this time and patient is medically stable for discharge. - Time Spent with Patient Total time spent providing and/or coordinating discharge services: Greater than 30 minutes (45 min) - Constitutional Vitals: Temp Pulse Resp BP Pulse Ox 98.6 F 75 16 127/83 98 03/15/16 11:12 03/15/16 12:00 03/15/16 11:12 03/15/16 11:12 03/15/16 11:12 General appearance: Present: A&O X 3, answers questions appropriately - Respiratory Respiratory exam: Present: CTAB. Absent: accessory muscle use, rales, rhonchi, wheezes - Cardiovascular Cardiovascular exam: Present: RRR, +S1, +S2. Absent: diastolic murmur, gallop, rubs, systolic murmur
[2016-03-16 12:06] LABS: Hepatitis A Antibody IgM Nonreactive (Nonreactive); Hepatitis B Core IgM Nonreactive (Nonreactive); Hepatitis B Surface Antigen Nonreactive (Nonreactive)
[2016-03-16 12:11] LABS: Hepatitis C Virus Antibody Reactive (Nonreactive)
--- NOTE | 2016-03-16 17:28 | Electrocardiograph Report ---
[place] [id number] Test Date: 2016-03-14 Pat Name: Julio Davalos Department: 104 Room: 2N12 Gender: M Pre Press Manager: : 1975 Requested By: Joseph Avery Order Number: [id number] Reading MD: Tanja Baum Measurements Intervals [place] Rate: 90 P: 75 MA: 159 QRS: 71 QRSD: 93 T: 57 QT: 344 QTc: 392 Interpretive Statements SINUS RHYTHM WITH SINUS ARRHYTHMIA Electronically Signed On 03-16-2016 17:26:21 EST by Tanja Baum
[2016-03-17 20:58] LABS: Amphetamines NEGATIVE ng/mL (Cutoff 30); Barbiturates NEGATIVE ng/mL (Cutoff 75); Methadone NEGATIVE ng/mL (Cutoff 40); Methamphetamines NEGATIVE ng/mL (Cutoff 30); Opiates NEGATIVE ng/mL (Cutoff 30); Phencyclidine NEGATIVE ng/mL (Cutoff 15)
[2016-03-18 11:26] LABS: Benzodiazepines POSITIVE ng/mL (Cutoff 75); Cocaine POSITIVE ng/mL (Cutoff 30)
[2016-03-20 07:35] LABS: Cocaine Confirmation 78 ng/mL
[2016-03-21 22:51] LABS: 7-aminoclonazepam Conf <5 ng/mL; Alpha-hydroxyalprazolam Conf <5 ng/mL; Chlordiazepoxide Conf <20 ng/mL; Clonazepam Conf <5 ng/mL; Lorazepam Confirmation <20 ng/mL; Midazolam Confirmation <20 ng/mL; Oxazepam Confirmation <20 ng/mL; Temazepam Confirmation <20 ng/mL
[2016-03-23 07:46] LABS: Alprazolam Confirmation 13 ng/mL; Diazepam Confirmation 10 ng/mL; Nordiazepam Confirmation 21 ng/mL
== END 2016-03-15 15:30 | disposition home or self-care (01) | DRG 812 ==
LOC: 2NNU 15:54 → EMEROO 15:54 → 2NNU 20:15
PROVIDERS: ADMIT Internal Medicine; ATTEND Internal Medicine

== ENCOUNTER 2017-09-21 21:02 | Observation (INO) ==
--- NOTE | 2017-09-21 21:07 | Emergency Department Note ---
Disposition Clinical Impression: Jaundice Abdominal pain Qualifiers: Abdominal location: epigastric Qualified Code(s): R10.13 - Epigastric pain Disposition: Still a Patient Referrals: NONE,PCP [Primary Care Provider] - Forms: ED Satisfaction Letter, Work/School Release Time of Disposition: 23:01 General Adult HPI - General Stated complaint: Abdominal Pain Time Seen by Provider: 09/21/17 21:04 - Related Data Previous Rx's Medication Instructions Recorded Ibuprofen [Motrin] 600 mg PO Q6HR PRN #20 tab 10/07/16 Amoxicillin/Clavulanate [Augmentin] 875 mg PO BIDWM #20 tablet 10/12/16 NALOXONE 4 MG Nasal [place] [Narcan] 4 mg NS AD #2 sprays 07/04/17 NALOXONE 4 MG Nasal [place] [Narcan] 4 mg NS AD #2 sprays 08/06/17 Allergies Allergy/AdvReac Type Severity Reaction Status Date / Time No Known Allergies Allergy Verified 01/03/17 22:28 Past Medical History - Past Medical History Medical history: Reports: arthritis, hypertension, other Surgical history: Reports: orthopedic, other (Right shoulder surgery.), other Psychiatric history: Reports: anxiety, other - Social History Smoking Status: Current every day smoker Smokeless Tobacco Status: No Alcohol use: Reports: occasionally Drug use: Reports: cocaine, opiates, IV Drug Use Course Vital Signs Temperature 99.7 F H 09/21/17 21:08 Pulse Rate 87 09/21/17 21:08 Respiratory Rate 16 09/21/17 21:08 Blood Pressure 117/84 09/21/17 21:08 O2 Sat by Pulse Oximetry 99 09/21/17 21:08 Temperature 99.7 F H 09/21/17 21:08 Pulse Rate 83 09/21/17 21:35 Respiratory Rate 16 09/21/17 21:35 Blood Pressure 110/67 09/21/17 21:35 O2 Sat by Pulse Oximetry 99 09/21/17 21:35 Oxygen Delivery Oxygen Delivery Room Air Medical Decision Making - Lab Data Lab results reviewed: Yes I reviewed the patient's lab results. Result diagrams: 09/21/17 22:23 09/21/17 22:23 Lab Results 09/21/17 09/21/17 09/21/17 Range/Units 21:20 22:23 22:23 WBC 6.8 (4.3-11.1) K/mcL RBC 4.57 (4.19-5.50) M/mcL Hgb 14.2 (12.9-16.9) g/dL Hct 41.9 (37.5-50.1) % MCV 91.7 (83.0-100.0) fL MCH 31.1 (28.0-33.3) pg MCHC 33.9 (31.6-35.5) g/dL RDW 15.5 H (11.5-14.5) % Plt Count 106 L (140-400) K/mcL MPV 13.2 H (9.4-12.4) fL PT (9.4-12.1) Seconds INR Sodium 134 L (136-145) mEq/L Potassium 3.7 (3.5-5.1) mEq/L Chloride 106 (98-107) mEq/L Carbon Dioxide 23 (23-29) mEq/L BUN 6 (6-20) mg/dL Creatinine 0.62 L (0.70-1.30) mg/dL Est GFR ( Amer) > 60 (> 60) Est GFR (Non-Af Amer) > 60 (> 60) BUN/Creatinine Ratio 10 (6-26) Glucose 97 (70-105) mg/dL Calculated Osmolality 276 L (280-300) Calcium 8.4 L (8.6-10.3) mg/dL Total Bilirubin 8.4 H (0.3-1.0) mg/dL Direct Bilirubin (0.0-0.2) mg/dL AST 159 H (13-39) Units/L ALT > 500 H (7-52) Units/L Alkaline Phosphatase 162 H (34-104) Units/L Serum Total Protein 7.1 (6.4-8.9) g/dL Albumin 3.3 L (3.5-5.7) g/dL Globulin 3.8 H (2.4-3.5) g/dL Albumin/Globulin Ratio 0.9 L (1.1-2.2) Lipase 71 (11-82) Units/L Urine Color [place] A (Yellow) Urine Clarity Slightly Hazy (Clear) Urine pH 5.0 (5.0-8.0) pH Units Ur Specific [place] 1.025 (1.010-1.025) Urine Protein Negative (Neg-Trace) mg/dL Urine Glucose (UA) Normal (Normal) mg/dL Urine Ketones Trace H (Negative) mg/dL Urine Blood Negative (Negative) Urine Nitrite Negative (Negative) Urine Bilirubin Large H (Negative) Urine Urobilinogen Normal (Normal) mg/dL Ur Leukocyte Esterase Small H (Negative) Urine Microscopic RBC 0-3 (0-3) per hpf Urine Microscopic WBC 0-3 (0-3) per hpf Ur Squamous Epith Cells None Seen (None-Few) per lpf Amorphous Sediment Moderate H (Few) Urine Bacteria None Seen (None-Few) per hpf Hyaline Casts None Seen (None-Few) per lpf Acetaminophen (10-20) mcg/mL Ethyl Alcohol (Less than 10) mg/dL 09/21/17 09/21/17 Range/Units 22:23 22:23 WBC (4.3-11.1) K/mcL RBC (4.19-5.50) M/mcL Hgb (12.9-16.9) g/dL Hct (37.5-50.1) % MCV (83.0-100.0) fL MCH (28.0-33.3) pg MCHC (31.6-35.5) g/dL RDW (11.5-14.5) % Plt Count (140-400) K/mcL MPV (9.4-12.4) fL PT 12.7 H (9.4-12.1) Seconds INR 1.1 Sodium (136-145) mEq/L Potassium (3.5-5.1) mEq/L Chloride (98-107) mEq/L Carbon Dioxide (23-29) mEq/L BUN (6-20) mg/dL Creatinine (0.70-1.30) mg/dL Est GFR ( Amer) (> 60) Est GFR (Non-Af Amer) (> 60) BUN/Creatinine Ratio (6-26) Glucose (70-105) mg/dL Calculated Osmolality (280-300) Calcium (8.6-10.3) mg/dL Total Bilirubin (0.3-1.0) mg/dL Direct Bilirubin 4.7 H (0.0-0.2) mg/dL AST (13-39) Units/L ALT (7-52) Units/L Alkaline Phosphatase (34-104) Units/L Serum Total Protein (6.4-8.9) g/dL Albumin (3.5-5.7) g/dL Globulin (2.4-3.5) g/dL Albumin/Globulin Ratio (1.1-2.2) Lipase (11-82) Units/L Urine Color (Yellow) Urine Clarity (Clear) Urine pH (5.0-8.0) pH Units Ur Specific [place] (1.010-1.025) Urine Protein (Neg-Trace) mg/dL Urine Glucose (UA) (Normal) mg/dL Urine Ketones (Negative) mg/dL Urine Blood (Negative) Urine Nitrite (Negative) Urine Bilirubin (Negative) Urine Urobilinogen (Normal) mg/dL Ur Leukocyte Esterase (Negative) Urine Microscopic RBC (0-3) per hpf Urine Microscopic WBC (0-3) per hpf Ur Squamous Epith Cells (None-Few) per lpf Amorphous Sediment (Few) Urine Bacteria (None-Few) per hpf Hyaline Casts (None-Few) per lpf Acetaminophen < 10 L (10-20) mcg/mL Ethyl Alcohol < 10 (Less than 10) mg/dL - Radiology Data Radiology results reviewed: Yes I reviewed the patient's radiology results. Attestation Statement - Attestation Attestation: I examined this patient and my medical decision-making was reviewed with the Resident Physician. I agree with the documented findings, disposition and treatment plan as described except to the extent set forth below. [id number] time provided Patient presents by EMS with upper abdominal pain. He is jaundiced on exam. States he does not drink alcohol or take acetaminophen-containing products. He still has a gallbladder. Workup initiated 23:00: Patient has direct and indirect hyperbilirubinemia. Etiology of jaundice and completely certain pending viral hepatitis panel. I will request admission to the medicine service
--- NOTE | 2017-09-21 21:31 | Emergency Department Note ---
Disposition Clinical Impression: Jaundice Abdominal pain Qualifiers: Abdominal location: epigastric Qualified Code(s): R10.13 - Epigastric pain Disposition: Still a Patient Forms: ED Satisfaction Letter, Work/School Release General Adult HPI - General Chief complaint: ED Abdominal Pain Stated complaint: Abdominal Pain Time Seen by Provider: 09/21/17 21:04 Source: patient, EMS Mode of arrival: ambulatory Limitations: language barrier, other (hearing loss) Nursing Notes Reviewed: Yes Vital Signs Reviewed: Yes - History of Present Illness HPI Narrative: 41 year old white male presents for abdominal pain and "pissing yellow green". Patient points to epigastric region. States it started 3-4 days ago. Pain is constant sharp, achy, and tight. It feels "knotted up." Never had before. Tried tylenol and aleve without relief. States urine is "ugly" and "thick" and explains that means the urine is dark in color. Describes urine color as yellow , green, and brown. Does not know if there's blood in urine, if he's having pain with urination, or if there's a strong odor to the urine. Reports associated symptoms of sleepiness, weakness, and foot cramps. Current smoker, occasional heroin, denies alcohol. Denies consuming large amounts of tylenol or alcohol recently. Denies chest pain, shortness of breath. Reports hepatitis C. States he doesn't take any medications. Pain Scale: 7 - Related Data Previous Rx's Medication Instructions Recorded Ibuprofen [Motrin] 600 mg PO Q6HR PRN #20 tab 10/07/16 Amoxicillin/Clavulanate [Augmentin] 875 mg PO BIDWM #20 tablet 10/12/16 NALOXONE 4 MG Nasal [place] [Narcan] 4 mg NS AD #2 sprays 07/04/17 NALOXONE 4 MG Nasal [place] [Narcan] 4 mg NS AD #2 sprays 08/06/17 Allergies Allergy/AdvReac Type Severity Reaction Status Date / Time No Known Allergies Allergy Verified 01/03/17 22:28 All systems ED: reviewed and negative except as stated. Past Medical History - Past Medical History Medical history: Reports: arthritis, hypertension, other Surgical history: Reports: orthopedic, other (Right shoulder surgery.), other Psychiatric history: Reports: anxiety, other - Social History Smoking Status: Current every day smoker Smokeless Tobacco Status: No Alcohol use: Reports: occasionally Drug use: Reports: cocaine, opiates, IV Drug Use Physical Exam - General Limitations: language barrier (speaks softly and is difficult to understand patient's vernacular ), other (hearing loss) General appearance: alert - Head Head exam: atraumatic, normocephalic, normal inspection - Eye Eye exam: Present: PERRL, EOMI, scleral icterus. Absent: conjunctival injection - ENT ENT exam: normal exam, normal oropharynx, mucous membranes moist - Neck Neck exam: Present: normal inspection - Chest Chest inspection: Present: normal inspection, symmetric chest wall rise - Respiratory Respiratory exam: Present: normal lung sounds bilaterally. Absent: respiratory distress - Cardiovascular Cardiovascular exam: Present: regular rate, normal rhythm, normal heart sounds - Abdominal Exam Abdominal exam: Present: soft, tenderness, normal bowel sounds, other (Jaundice is apparent on patient's abdomen and chest ). Absent: distention, guarding, rebound, rigidity, bruit Abdominal tenderness: Present: epigastrium - Extremities Exam Extremities exam: Present: normal inspection, full ROM, other (No asterixis ). Absent: tenderness, pedal edema - Neurological Exam Neurological exam: Present: alert, oriented X3, CN II-XII intact - Skin Skin exam: Present: warm, dry, intact. Absent: normal color, rash Course Course Narrative: 41 year old male presents for epigastric pain and dark urine. Reports hepatitis C. Patient is alert and oriented and hemodynamically stable. Tempature is mildly elevated at 99.7. On exam, patient's conjunctiva, chest, and abdomen are jaundiced. There is pain to palpation to epigastrium. Will order CT abd/pelvis and labwork, including bilirubin, acetaminophen, ethanol, viral hepatitis panel , and UA. - Reevaluation(s) Reevaluation #1: UA reveals large bilirubin, small leukocyte esterase, and negative nitrite. Time: 22:39 Vital Signs Temperature 99.7 F H 09/21/17 21:08 Pulse Rate 87 09/21/17 21:08 Respiratory Rate 16 09/21/17 21:08 Blood Pressure 117/84 09/21/17 21:08 O2 Sat by Pulse Oximetry 99 09/21/17 21:08 Temperature 99.7 F H 09/21/17 21:08 Pulse Rate 83 09/21/17 21:35 Respiratory Rate 16 09/21/17 21:35 Blood Pressure 110/67 09/21/17 21:35 O2 Sat by Pulse Oximetry 99 09/21/17 21:35 Oxygen Delivery Oxygen Delivery Room Air Medical Decision Making - Medical Records Medical records reviewed: Yes I reviewed the patient's medical records. - Lab Data Lab results reviewed: Yes I reviewed the patient's lab results. Lab Results 09/21/17 Range/Units 21:20 Urine Color [place] A (Yellow) Urine Clarity Slightly Hazy (Clear) Urine pH 5.0 (5.0-8.0) pH Units Ur Specific [place] 1.025 (1.010-1.025) Urine Protein Negative (Neg-Trace) mg/dL Urine Glucose (UA) Normal (Normal) mg/dL Urine Ketones Trace H (Negative) mg/dL Urine Blood Negative (Negative) Urine Nitrite Negative (Negative) Urine Bilirubin Large H (Negative) Urine Urobilinogen Normal (Normal) mg/dL Ur Leukocyte Esterase Small H (Negative) Urine Microscopic RBC 0-3 (0-3) per hpf Urine Microscopic WBC 0-3 (0-3) per hpf Ur Squamous Epith Cells None Seen (None-Few) per lpf Amorphous Sediment Moderate H (Few) Urine Bacteria None Seen (None-Few) per hpf Hyaline Casts None Seen (None-Few) per lpf
[2017-09-21 21:47] LABS: Bacteria,Urine None Seen per hpf (None-Few); Hyaline Casts,Urine None Seen per lpf (None-Few); Squamous Epithelial Cell,Urine None Seen per lpf (None-Few); WBC,Urine 0-3 per hpf (0-3)
[2017-09-21 21:48] LABS: Color,Urine Orange (Yellow)
[2017-09-21 21:49] LABS: Bilirubin,Urine Large (Negative); Clarity,Urine Slightly Hazy (Clear); Glucose,Urine (UA) Normal (Normal); Ketones,Urine Trace mg/dL (Negative)
[2017-09-21 21:50] LABS: Leukocyte Esterase,Urine Small (Negative); Nitrite,Urine Negative (Negative); Protein,Urine Negative (Neg-Trace); Urobilinogen,Urine Normal (Normal)
[2017-09-21 21:51] LABS: Blood,Urine Negative (Negative); Specific Gravity,Urine 1.025 (1.010-1.025)
[2017-09-21 22:00] LABS: RBC,Urine 0-3 per hpf (0-3)
[2017-09-21 22:01] LABS: Amorphous Sediment,Urine Moderate (Few)
[2017-09-21 22:39] LABS: Basophils % 0.3 %; Eosinophils # 0.1 K/mcL (0.0-0.6); Eosinophils % 1.9 %; Hematocrit 41.9 % (37.5-50.1); Hemoglobin 14.2 g/dL (12.9-16.9); Immature Granulocytes % 0.3 % (0-4); Lymphocytes # 2.1 K/mcL (0.6-4.6); Lymphocytes % 30.1 %; Mean Corpuscular HGB Conc 33.9 g/dL (31.6-35.5); Mean Corpuscular Hemoglobin 31.1 pg (28.0-33.3); Mean Corpuscular Volume 91.7 fL (83.0-100.0); Mean Platelet Volume 13.2 fL (9.4-12.4); Monocytes # 0.6 K/mcL (0.0-1.3); Monocytes % 8.9 %; Platelet Count 106 K/mcL (140-400); Red Blood Count 4.57 M/mcL (4.19-5.50); Red Cell Distribution Width 15.5 % (11.5-14.5); Segmented Neutrophils % 58.5 %
[2017-09-21 22:58] LABS: Acetaminophen < 10 mcg/mL (10-20); Bilirubin,Direct 4.7 mg/dL (0.0-0.2); Ethanol < 10 mg/dL (Less than 10)
[2017-09-21 23:00] LABS: Alanine Aminotransferase > 500 Units/L (7-52); Albumin 3.3 g/dL (3.5-5.7); Albumin/Globulin Ratio 0.9 (1.1-2.2); Alkaline Phosphatase 162 Units/L (34-104); Aspartate Amino Transferase 159 Units/L (13-39); BUN/Creatinine Ratio 10 (6-26); Bilirubin,Total 8.4 mg/dL (0.3-1.0); Blood Urea Nitrogen 6 mg/dL (6-20); Calcium 8.4 mg/dL (8.6-10.3); Carbon Dioxide 23 mEq/L (23-29); Chloride 106 mEq/L (98-107); Globulin 3.8 g/dL (2.4-3.5); Glucose 97 mg/dL (70-105); INR 1.1; Lipase 71 Units/L (11-82); Osmolality,Calculated 276 (280-300); Potassium 3.7 mEq/L (3.5-5.1); Prothrombin Time 12.7 Seconds (9.4-12.1); Sodium 134 mEq/L (136-145); Total Protein 7.1 g/dL (6.4-8.9); eGFR For Non-African Americans > 60 (> 60)
[2017-09-21 23:24] LABS: Platelet Estimate Decreased (Normal); Reactive Lymphocytes Present (Not Present)
--- NOTE | 2017-09-22 00:15 | Internal Med History&Physical ---
Date of Encounter: 09/21/17 Time of Encounter: 23:58 Internal Medicine - H&P: HPI Chief complaint: abdominal pain Admitted From: Home Plans for Post Hospital Care: Home History of present illness: Mr. Davalos is a 41 year old man with a known history of substance use disorder and chronic hepatitis C who presents with the complaint of generalized malaise, abdominal pain and yellowing of his skin for the past 1 week. He states that he has accompanying nausea and vomiting; has noticed his urine being more yellow and almost greenish and occasional loose stool which became more turpin in color. His last bowel movement was a day ago. He localizes the pain to his epigastrium with accompanying acidity running up his throat. He admits to ongoing substance use, last injecting heroin 2 days ago. He denies being on any prescribed or OTC medications at this time. Past Med Surg Social Fam HX - Past Medical History Medical history: arthritis, hypertension, other Additional medical history: Hep C Psychiatric history: anxiety, other - Past Surgical History Surgical History: orthopedic, other (Right shoulder surgery.), other Additional surgical history: R collar bone - Social History Smoking Status: Current every day smoker Smokeless Tobacco Status: No Alcohol use: occasionally Drug use: cocaine, opiates, IV Drug Use Internal Medicine - H&P: Meds Ibuprofen [Motrin] 600 mg PO Q6HR PRN #20 tab 10/07/16 [Rx] Amoxicillin/Clavulanate [Augmentin] 875 mg PO BIDWM #20 tablet 10/12/16 [Rx] NALOXONE 4 MG Nasal [place] [Narcan] 4 mg NS AD #2 sprays 07/04/17 [Rx] NALOXONE 4 MG Nasal [place] [Narcan] 4 mg NS AD #2 sprays 08/06/17 [Rx] 3 Allergy/AdvReac Type Severity Reaction Status Date / Time No Known Allergies Allergy Verified 01/03/17 22:28 All Systems PM: A 10-system review of systems was performed and is negative for pertinent findings except as documented above in the HPI. - Constitutional Vitals: Temp Pulse Resp BP Pulse Ox 99.7 F H 71 16 106/69 99 09/21/17 21:08 09/22/17 00:12 09/21/17 21:35 09/22/17 00:12 09/22/17 00:12 Exam: Vitals: Reviewed General: Well-developed white man lying comfortably in bed in no acute distress. Skin: Pale skin with some bronzening in certain areas and yellowing in others; multiple nevi. HEENT: Moist mucous membranes. Scleral isterus notable. Neck: No lymphadenopathy. No JVD. No carotid bruits. No palpable thyroid. Chest: Normal thoracic expansion. Normal breath sounds. Clear to auscultation. Heart: Normal S1 & S2; rhythmic. No rubs or murmurs. Abdomen: Non-distended, soft and mildly tender to palpation in the epigastrium predominantly and RUQ. No peritoneal reaction. Liver is normal in size. Spleen is not palpable. Extremities: No clubbing, cyanosis or edema. No calf tenderness. Normal distal pulses. Neurological: Awake, alert and oriented to person, place and time. No focal deficits. Psych: Affect appropriate. Internal Med - H&P Results - Labs CBC & Chem 7: 09/21/17 22:23 09/21/17 22:23 - Assessment and plan (1) Jaundice Current Visit: Yes Status: Acute Assessment and plan: Unclear etiology; has a notable elevation in serum ALT and only mild elevation to AST which is congruent with his report of not using alcohol. I am concerned he may have a new viral hepatitis (current HAV outbreak) on top of his HCV which can complicate the condition. He has a mixed LFT pattern not consistent with a solely obstructive pattern and not purely hepatocellular. Current MELD is 16; MELD-Na is 20. Estimated 3-month mortality of 6.0%. No signs of acute liver failure at this time. -We have sent a viral hepatitis panel for assessment. -Will place on IVF and symptomatic relief of abdominal pain. -Will order a liver ultrasound for macroscopic evaluation and consult GI. -Obtain a UDS; check etoh and acetaminophen levels. -If his serologic evaluation for viral hepatitis is unremarkable, a more comprehensive work up would be in order. (2) Hyponatremia Current Visit: Yes Status: Acute Assessment and plan: Mild and likely hypovolemic in origin from poor intake. -Will recheck after volume resuscitation. (3) Abdominal pain Current Visit: Yes Status: Acute Assessment and plan: Likely related to acute hepatitis. -Will give PPI for symptomatic gastric relief. Qualifiers: Abdominal location: epigastric Qualified Code(s): R10.13 - Epigastric pain (4) Chronic hepatitis C virus infection Current Visit: Yes Status: Chronic Assessment and plan: Never treated as per patient although he offers conflicting reports. Will order a viral load given his acute transaminitis to ensure this is not the driving force in his current condition. He was educated on the availability of treatments as all patients with virologic evidence of chronic HCV infection even though he is still using drugs should be considered for treatment. Qualifiers: Hepatic coma status: without hepatic coma Qualified Code(s): B18.2 - Chronic viral hepatitis C (5) Thrombocytopenia Current Visit: Yes Status: Acute Assessment and plan: Possibly associated with his liver disease and substance abuse. Will continue to monitor. (6) Substance use disorder Current Visit: Yes Status: Chronic Assessment and plan: Counseling given on his habits and advised that there are resources available to assist with his habit. He may benefit from foster care social worker evaluation for needs. Should undergo HIV testing given his ongoing needle use and viral hepatitis history. (7) DVT prophylaxis Current Visit: Yes Status: Acute Assessment and plan: SubQ heparin indicated. - Time Spent With Patient Total time spent is greater than 50% in coordination of care (as documented) at patient's floor/unit and/or counseling patient: Greater than 35 minutes
[2017-09-22] MEDS ORDERED: GI Cocktail 40 ML EACH PO ONE (00:34)
[2017-09-22] MEDS: Ketorolac 15 MG/ML VIAL IVP PRN ×3 (00:55→21:13)
[2017-09-22] MEDS: Ringers Solution, Lactated 1,000 ML IVC SCH ×2 (01:01→07:33)
[2017-09-22 05:23] LABS: Hepatitis B Core IgM Nonreactive (Nonreactive); Hepatitis B Surface Antigen Nonreactive (Nonreactive)
[2017-09-22] MEDS: *HR* Heparin 5,000 UNIT/ML VIAL SQ SCH ×3 (05:27→21:09)
[2017-09-22] MEDS ORDERED: Ketorolac 15 MG/ML VIAL IVP SCH (06:00)
[2017-09-22 06:01] LABS: Basophils % 0.4 %; Eosinophils # 0.2 K/mcL (0.0-0.6); Eosinophils % 3.3 %; Hematocrit 40.1 % (37.5-50.1); Hemoglobin 13.9 g/dL (12.9-16.9); Immature Granulocytes % 0.3 % (0-4); Lymphocytes # 2.8 K/mcL (0.6-4.6); Lymphocytes % 40.2 %; Mean Corpuscular HGB Conc 34.7 g/dL (31.6-35.5); Mean Corpuscular Hemoglobin 31.4 pg (28.0-33.3); Mean Corpuscular Volume 90.5 fL (83.0-100.0); Mean Platelet Volume 12.3 fL (9.4-12.4); Monocytes # 0.6 K/mcL (0.0-1.3); Neutrophils # 3.3 K/mcL (1.6-8.9); Platelet Count 135 K/mcL (140-400); Red Blood Count 4.43 M/mcL (4.19-5.50); Red Cell Distribution Width 15.7 % (11.5-14.5); Segmented Neutrophils % 46.8 %
[2017-09-22 06:28] LABS: Alanine Aminotransferase > 500 Units/L (7-52); Albumin 3.1 g/dL (3.5-5.7); Albumin/Globulin Ratio 0.8 (1.1-2.2); Alkaline Phosphatase 162 Units/L (34-104); Aspartate Amino Transferase 147 Units/L (13-39); BUN/Creatinine Ratio 13 (6-26); Bilirubin,Direct 4.4 mg/dL (0.0-0.2); Bilirubin,Indirect 3.4 mg/dL (0.0-1.2); Bilirubin,Total 7.8 mg/dL (0.3-1.0); Blood Urea Nitrogen 7 mg/dL (6-20); Calcium 8.6 mg/dL (8.6-10.3); Carbon Dioxide 22 mEq/L (23-29); Chloride 108 mEq/L (98-107); Globulin 3.7 g/dL (2.4-3.5); Glucose 87 mg/dL (70-105); Osmolality,Calculated 279 (280-300); Sodium 136 mEq/L (136-145); Total Protein 6.8 g/dL (6.4-8.9); eGFR For Non-African Americans > 60 (> 60)
[2017-09-22] MEDS ORDERED: Pantoprazole 40 MG VIAL IVP SCH (06:30)
[2017-09-22 06:33] LABS: Large Platelets Present (Not Present); Platelet Estimate Slight Decrease (Normal); Reactive Lymphocytes Present (Not Present)
[2017-09-22 06:35] LABS: Hepatitis A Antibody IgM Reactive (Nonreactive)
[2017-09-22 08:11] LABS: Amphetamine Screen,Urine Negative ng/mL (Cutoff=1000); Barbiturate Screen,Urine Negative ng/mL (Cutoff=200); Benzodiazepines Screen,Urine Negative ng/mL (Cutoff=200); Cannabinoid Screen,Urine Negative ng/mL (Cutoff = 50); Cocaine Screen,Urine Negative ng/mL (Cutoff= 300); Opiate Screen,Urine Negative ng/mL (Cutoff=300); Phencyclidine Screen,Urine Negative ng/mL (Cutoff=25)
[2017-09-22 08:19] LABS: Hepatitis C Virus Antibody Reactive (Nonreactive)
--- NOTE | 2017-09-22 14:24 | Gastroenterology Consult Note ---
<VernonScot Guzman - Last Filed: 09/22/17 14:22> Date of Encounter: 09/22/17 Time of Encounter: 10:35 - Assessment and plan (1) Jaundice Current Visit: Yes Status: Acute Assessment and plan: Likely secondary to hepatitis A. On admission total bili 8.4, AST 159, ALT >500 , and alk phos 162. This AM total bili 7.8, AST 147, ALT >500, and alk phos 162. CT A/P with normal appearing liver, bile ducts not dilated. (2) Hepatitis A antibody positive Current Visit: Yes Status: Acute Assessment and plan: Continue to monitor hepatic panel daily. (3) Elevated LFTs Current Visit: Yes Status: Acute Assessment and plan: Likely secondary to Hep A. Continue to monitor hepatic panel. CT A/P with normal appearing liver, and bile ducts not dilated. (4) Thrombocytopenia Current Visit: Yes Status: Acute Assessment and plan: Concern for cirrhosis. Complete RUQ US and liver work up. (5) Chronic hepatitis C virus infection Current Visit: Yes Status: Chronic Assessment and plan: Check Hep C quant and genotype. Qualifiers: Hepatic coma status: without hepatic coma Qualified Code(s): B18.2 - Chronic viral hepatitis C (6) IVDU (intravenous drug user) Current Visit: No Status: Chronic - Time Spent With Patient Total time spent is greater than 50% in coordination of care (as documented) at patient's floor/unit and/or counseling patient: GI History of Present Illness - Data of Consult Patient: new to practice Consult date: 09/22/17 Requesting Physician: John Mahoney - Consult Narrative Reason for consult: Elevated LFTs, hyperbilirubinemia, jaundice History of present illness: Mr. Davalos is a 41 year old male with PMHx of arthritis, HTN, IV drug abuse with sharing needles, and Hep C who presented to the ED with complaints of epigastric abdominal pain and jaundice for the past week. He noticed his urine being yellow/green, and his stool became more turpin in color. He admits he last injected heroin 2 days prior to admission. On admission total bili 8.4, AST 159 , ALT >500, and alk phos 162. This AM total bili 7.8, AST 147, ALT >500, and alk phos 162. CT A/P with normal appearing liver, bile ducts not dilated. Procedures: None NSAIDs: None Anticoagulation: None Past Med Surg Social Fam HX - Past Medical History Medical history: arthritis, hypertension Additional medical history: Hep C Psychiatric history: anxiety - Past Surgical History Surgical History: orthopedic, other Additional surgical history: R collar bone - Social History Smoking Status: Current every day smoker Packs per day: 1 Smokeless Tobacco Status: No Alcohol use: none Drug use: none - Family History Father Hx Family Endocrine Disorder: Yes (DM) - Gastrointestinal Gastrointestinal: Present: as per HPI - Constitutional Constitutional: as per HPI - EENT Eyes: as per HPI Ears: Present: as per HPI Nose, mouth and throat: Present: as per HPI - Cardiovascular Cardiovascular ROS: Present: as per HPI - Respiratory Respiratory IM: Present: as per HPI - Genitourinary Genitourinary: Absent: change in color, Urinary frequency - Neurological ROS Neurological GI: Present: as per HPI - Hematologic/Lymphatic Hematologic/Lymphatic pediatric: Present: as per HPI - Musculoskeletal Musculoskeletal ROS GI: Present: as per HPI - Integumentary Integumentary GI: Present: as per HPI - Psychiatric ROS Psychiatric GI: Present: as per HPI - Endocrine Endocrine IM: Present: as per HPI - Constitutional Vitals: Temp Pulse Resp BP Pulse Ox 99.0 F 74 16 109/64 97 09/22/17 07:02 09/22/17 07:02 09/22/17 07:02 09/22/17 07:02 09/22/17 07:40 General appearance: Present: cooperative, A&O X 3, no acute distress, answers questions appropriately - Head Head exam: Present: atraumatic, normocephalic - Eye Eye exam: Present: scleral icterus - ENT ENT exam: Present: mucous membranes dry - Neck Neck exam general surgery: Present: normal inspection, trachea midline - Respiratory Respiratory exam: Present: CTAB. Absent: rales, rhonchi - Cardiovascular Cardiovascular exam: Present: RRR, +S1, +S2 - GI/Abdominal GI/Abdominal exam: Present: normal bowel sounds, soft, tenderness (epigastric), no peritoneal signs. Absent: distended, firm, guarding - Rectal Rectal exam: Present: deferred - Extremities Exam Extremities exam: Present: warm - Neurological Exam Neurological exam: Present: no focal deficits - Psychiatric Psychiatric exam: Present: normal affect, normal mood - Skin Skin exam: Present: dry, intact, warm. Absent: normal color Additional comments: jaundice Results - Labs CBC & Chem 7: 09/22/17 05:51 09/22/17 05:51 Labs: Last Result Calcium 8.6 mg/dL (8.6-10.3) 09/22/17 05:51 Urine Opiates Screen Negative ng/mL ([id number]) 09/22/17 07:40 Entire Visit Hgb 13.9 g/dL (12.9-16.9) 09/22/17 05:51 Hct 40.1 % (37.5-50.1) 09/22/17 05:51 PT 12.7 Seconds (9.4-12.1) H 09/21/17 22:23 Total Bilirubin 7.8 mg/dL (0.3-1.0) H 09/22/17 05:51 AST 147 Units/L (13-39) H 09/22/17 05:51 ALT > 500 Units/L (7-52) H 09/22/17 05:51 Lipase 71 Units/L (11-82) 09/21/17 22:23 Acetaminophen < 10 mcg/mL (10-20) L 09/21/17 22:23 - ABG ABG results: PT/INR, D-dimer PT 12.7 Seconds (9.4-12.1) H 09/21/17 22:23 - Impressions Impressions Liver Ultrasound 09/22/17 10:30 IMPRESSION: 1. Contracted gallbladder with mild gallbladder wall thickening, which could be related to underlying chronic liver disease versus underdistention. There is probable gallbladder sludge and questionable stones. 2. Slightly coarse liver echotexture with slightly nodular contour, which can be seen in setting of cirrhosis. D/ / 09/22/2017 11:29:27 Nuha Lozada MD / [email or web address] Interpreting Provider: Nuha Lozada MD Consult Discharge Plan - Plan Referrals: NONE,PCP [Primary Care Provider] - <Roger Concepcion - Last Filed: 09/22/17 17:39> Date of Encounter: 09/22/17 Time of Encounter: 15:00 - Time Spent With Patient Total time spent is greater than 50% in coordination of care (as documented) at patient's floor/unit and/or counseling patient: GI History of Present Illness - Data of Consult Requesting Physician: John Mahoney - Consult Narrative History of present illness: Mr. Davalos is a 41 year old male - Constitutional Vitals: Temp Pulse Resp BP Pulse Ox 97.9 F 67 16 105/63 100 09/22/17 16:09 09/22/17 16:09 09/22/17 16:09 09/22/17 16:09 09/22/17 16:09 Results - Labs CBC & Chem 7: 09/22/17 05:51 09/22/17 05:51 Labs: Last Result Calcium 8.6 mg/dL (8.6-10.3) 09/22/17 05:51 Urine Opiates Screen Negative ng/mL ([id number]) 09/22/17 07:40 Entire Visit Hgb 13.9 g/dL (12.9-16.9) 09/22/17 05:51 Hct 40.1 % (37.5-50.1) 09/22/17 05:51 PT 12.7 Seconds (9.4-12.1) H 09/21/17 22:23 Total Bilirubin 7.8 mg/dL (0.3-1.0) H 09/22/17 05:51 AST 147 Units/L (13-39) H 09/22/17 05:51 ALT > 500 Units/L (7-52) H 09/22/17 05:51 Lipase 71 Units/L (11-82) 09/21/17 22:23 Acetaminophen < 10 mcg/mL (10-20) L 09/21/17 22:23 - ABG ABG results: PT/INR, D-dimer PT 12.7 Seconds (9.4-12.1) H 09/21/17 22:23 - Impressions Impressions Liver Ultrasound 09/22/17 10:30 IMPRESSION: 1. Contracted gallbladder with mild gallbladder wall thickening, which could be related to underlying chronic liver disease versus underdistention. There is probable gallbladder sludge and questionable stones. 2. Slightly coarse liver echotexture with slightly nodular contour, which can be seen in setting of cirrhosis. D/ 09/22/2017 11:29:27 Nuha Lozada MD / bcarter Interpreting Provider: Nuha Lozada MD - Attending Attestation I have personally performed a face to face evaluation on this patient. I have reviewed and agree with the care plan. History and Exam by me shows: Patient seen at the bedside. Denies any active symptoms on examination he is jaundiced but abdomen is benign. Assessment: Patient with acute hepatitis A with abnormal LFTs. Rec: Symtomatic treatment
[2017-09-23 01:10] LABS: Basophils % 0.3 %; Eosinophils # 0.2 K/mcL (0.0-0.6); Eosinophils % 3.2 %; Hematocrit 40.7 % (37.5-50.1); Hemoglobin 13.8 g/dL (12.9-16.9); Immature Granulocytes % 0.3 % (0-4); Lymphocytes # 2.3 K/mcL (0.6-4.6); Mean Corpuscular HGB Conc 33.9 g/dL (31.6-35.5); Mean Corpuscular Hemoglobin 30.9 pg (28.0-33.3); Mean Corpuscular Volume 91.1 fL (83.0-100.0); Mean Platelet Volume 12.6 fL (9.4-12.4); Monocytes # 0.4 K/mcL (0.0-1.3); Monocytes % 6.4 %; Neutrophils # 3.6 K/mcL (1.6-8.9); Platelet Count 134 K/mcL (140-400); Red Blood Count 4.47 M/mcL (4.19-5.50); Segmented Neutrophils % 54.8 %
[2017-09-23 01:25] LABS: Alanine Aminotransferase 486 Units/L (7-52); Albumin/Globulin Ratio 0.9 (1.1-2.2); Alkaline Phosphatase 165 Units/L (34-104); Aspartate Amino Transferase 127 Units/L (13-39); BUN/Creatinine Ratio 11 (6-26); Bilirubin,Direct 4.1 mg/dL (0.0-0.2); Bilirubin,Indirect 2.7 mg/dL (0.0-1.2); Bilirubin,Total 6.8 mg/dL (0.3-1.0); Blood Urea Nitrogen 7 mg/dL (6-20); Calcium 8.4 mg/dL (8.6-10.3); Carbon Dioxide 23 mEq/L (23-29); Chloride 107 mEq/L (98-107); Globulin 3.4 g/dL (2.4-3.5); Glucose 109 mg/dL (70-105); Magnesium 2.2 mg/dL (1.6-2.6); Osmolality,Calculated 281 (280-300); Potassium 3.8 mEq/L (3.5-5.1); Sodium 136 mEq/L (136-145); Total Protein 6.4 g/dL (6.4-8.9); eGFR For Non-African Americans > 60 (> 60)
[2017-09-23 01:47] LABS: Large Platelets Present (Not Present); Platelet Estimate Slight Decrease (Normal); Reactive Lymphocytes Present (Not Present)
[2017-09-23] MEDS: *HR* Heparin 5,000 UNIT/ML VIAL SQ SCH (05:10)
[2017-09-23 07:45] VITALS: BP 111/65
--- NOTE | 2017-09-23 11:03 | Discharge Summary ---
Orders not resulted at time of discharge: Pending orders 09/22/17 05:51 Hepatitis C Virus Quant AM 0400 09/22/17 15:49 AFP Tumor Marker Non- Routine MARCIA IgG SITA rflx IFA Routine [id number] Routine F-Actin IgG Reflex Sm Muscle Routine MPO/PR3 (ANCA) Antibodies Routine Mitochondrial M2 Antibody, IgG Routine 09/22/17 23:45 Ceruloplasmin Routine Date of Encounter: 09/23/17 Time of Encounter: 11:01 - Discharge Diagnosis (1) Jaundice Priority: Primary Status: Acute (2) Hepatitis A Priority: Primary Status: Acute Qualifiers: Hepatic coma status: without hepatic coma Qualified Code(s): B15.9 - Hepatitis A without hepatic coma (3) Chronic hepatitis C virus infection Priority: Secondary Status: Chronic Qualifiers: Hepatic coma status: without hepatic coma Qualified Code(s): B18.2 - Chronic viral hepatitis C (4) Substance use disorder Priority: Secondary Status: Chronic (5) Thrombocytopenia Priority: Secondary Status: Resolved Hospital course: Mr. Davalos is a 41 year old male. This patient has long-standing history of substance use disorder; diagnosed with hepatitis C in the past. We admitted him with jaundice; associated with generalized malaise and right upper quadrant abdominal pain. He also complained of open on nausea/vomiting and watery bowel movements. His bilirubin was 8.4; with AST of 159 and ALT over 500. Lipase was normal. Hepatitis panel showed hepatitis A IgM antibody. It also was reactive for hepatitis C antibody screen. Ultrasound of her liver showed contracted gallbladder with a mild gallbladder wall thickening. It showed slightly coarse liver echotexture with slightly nodular contour; could be seen in the setting of cirrhosis. CONDITION AT DISCHARGE: He seems to have good appetite. His right upper quadrant abdominal pain is nearly gone. Denies nausea and vomiting. He has not had any bowel movements recently. His bilirubin is 6.8; with AST 127 and ALT of 486. Skin: Jaundiced; no other discoloration or rash. Respiratory: Normal breath sounds with no crackles and wheezes bilaterally. GI: Abdomen is flat and soft with no palpable mass or visceromegaly. Neuro exam: There is no focal deficits. Normal speech, swallowing and gait. SEE DISCHARGE ORDERS/MEDICATIONS.. Discharge discussed with: patient Time spent discussing smoking cessation with patient: 3 to 10 minutes - Time Spent with Patient Total time spent providing and/or coordinating discharge services: Greater than 30 minutes (40 minutes) - Discharge Medications Home Medications: No Known Home Drugs 09/22/17 [History] Allergies/Adverse Reactions: 3 Allergy/AdvReac Type Severity Reaction Status Date / Time No Known Allergies Allergy Verified 01/03/17 22:28 Date of admission: 09/21/17 23:35 Primary care physician: PCP NONE Consults: 09/22/17 00:08 Consult to Gastroenterology [CONS] Routine Consulting Provider: Gastroenterology Audrey Reason for Consult: 41 y/o M w/ hx of IVDU and chronic HCV presenting with jaundice and acute elevation in LFTs. Call Completed: No 09/22/17 00:47 Consult to Nutrition [CONS] Routine Comment: Consulting Provider: NUTRITION Reason for Dietary Consult: MST Score Discharging clinician: John Mahoney Anticipated date of discharge: 09/23/17 - Constitutional Vitals: Temp Pulse Resp BP Pulse Ox 98.4 F 71 18 111/65 99 09/23/17 07:40 09/23/17 07:40 09/23/17 07:40 09/23/17 07:40 09/23/17 07:40 General appearance: Present: A&O X 3, no acute distress, answers questions appropriately - Patient Status Disposition: Home, Self-Care Condition: Good Functional capacity at discharge: independent ambulation Overall status at discharge: patient is progressing back to baseline - Discharge Instructions Follow Up With: NONE,PCP [Primary Care Provider] - Additional Instructions: The patient was advised to quit using drugs. When drugs-free, he will qualify for treatment of his hepatitis C. He is to establish with a PCP. - Diet and Activity Activity: resume usual activities as tolerated Diet: low fat, low cholesterol - VTE Reasons for not Prescribing Prophylaxis: Treatment not Indicated - Low risk for VTE Deep Vein Thrombosis/Pulmonary Embolism Present on Admission: No
[2017-09-26 13:15] LABS: AFP Tumor Marker Non-Pregnant 8 ng/mL (0-9)
[2017-09-27 08:42] LABS: HCV Quant Interpretation DETECTED (Not Detected)
[2017-09-27 08:46] LABS: ANA IgG by ELISA NONE DETECTED (None Detected); F-Actin (sm muscle) Ab IgG 22 Units (0-19); Smooth Muscle Ab Titer IgG 1:20 (<1:20)
== END 2017-09-23 11:27 | disposition home or self-care (01) ==
LOC: 2ANU 21:02 → EMEROOARM 21:02 → SUATTDRO 23:35 → 2ANU 09-22 00:25
PROVIDERS: ADMIT Family Medicine; ATTEND Internal Medicine

== ENCOUNTER 2020-05-07 17:55 | Inpatient (IN) ==
[~2020-05-07 17:55] MED LIST: *HR* EPINEPHrine 1 MG/10 ML SYRINGE IVP ONE; *HR* Magnesium Sulfate 2 GM/50 ML PIGGYBACK IVPB ONE; EPINEPHrine 1 MG/ML VIAL IV ONE
[2020-05-07] MEDS: EPINEPHrine 1 MG in D5% in Water 250 ML IVC SCH ×2 (18:17→19:57)
[2020-05-07] MEDS ORDERED: 0.9 % Sodium Chloride 1,000 ML ONE (18:28)
[2020-05-07] MEDS ORDERED: Isovue-370 500 ML BOTTLE IVP ONE (19:02)
[2020-05-07 19:11] LABS: Alanine Aminotransferase 81 Units/L (7-52); Albumin 3.8 g/dL (3.5-5.7); Albumin/Globulin Ratio 1.4 (1.1-2.2); Alkaline Phosphatase 73 Units/L (34-104); Aspartate Amino Transferase 89 Units/L (13-39); BUN/Creatinine Ratio 12 (6-26); Bilirubin,Total 0.3 mg/dL (0.3-1.0); Blood Urea Nitrogen 15 mg/dL (6-20); Calcium 9.7 mg/dL (8.6-10.3); Carbon Dioxide 18 mEq/L (23-29); Chloride 98 mEq/L (98-107); Globulin 2.7 g/dL (2.4-3.5); Glucose 314 mg/dL (70-105); Magnesium 2.5 mg/dL (1.6-2.6); Osmolality,Calculated 301 (280-300); Potassium 4.8 mEq/L (3.5-5.1); Sodium 139 mEq/L (136-145); Total Protein 6.5 g/dL (6.4-8.9); Troponin I < 0.03 ng/mL (< 0.04); eGFR For African Americans > 60 (> 60); eGFR For Non-African Americans > 60 (> 60)
[2020-05-07] MEDS ORDERED: D5% in Water 250 ML ONE (19:38)
[2020-05-07] MEDS ORDERED: EPINEPHrine 1 MG/ML VIAL ONE (19:38)
[2020-05-07 20:20] LABS: Eosinophils % 0.9 %; Hematocrit 38.4 % (37.5-50.1); Hemoglobin 12.3 g/dL (12.9-16.9); Immature Granulocytes % 1.7 % (0-4); Lymphocytes % 17.6 %; Mean Platelet Volume 10.1 fL (9.4-12.4); Monocytes % 0.8 %; Platelet Count 174 K/mcL (140-400); Red Cell Distribution Width 12.4 % (11.5-14.5); Segmented Neutrophils % 78.7 %
[2020-05-07 20:21] LABS: Basophils # 0.1 K/mcL (0.0-0.2); Basophils % 0.3 %; Eosinophils # 0.2 K/mcL (0.0-0.6); Lymphocytes # 3.8 K/mcL (0.6-4.6); Monocytes # 0.2 K/mcL (0.0-1.3); Neutrophils # 17.2 K/mcL (1.6-8.9)
[2020-05-07 20:22] LABS: ABG Base Excess -7 mEq/L (-2 to 3); ABG HCO3 22 mEq/L (21-27); ABG Oxygen Saturation 100 % (95-98); ABG PCO2 54 mmHg (35-45); ABG PH 7.22 pH Units (7.32-7.45); ABG PO2 417 mmHg (85-104); ABG TCO2 24 mEq/L (20-26); Blood Gas VT 500 cc
[2020-05-07 20:23] LABS: Mean Corpuscular Volume 93.7 fL (83.0-100.0); White Blood Count 21.8 K/mcL (4.3-11.1)
[2020-05-07] MEDS ORDERED: Naloxone 0.4 MG/ML INJ IVP PRN (20:25)
[2020-05-07 20:41] LABS: Bacteria,Urine Moderate per hpf (None-Few); Bilirubin,Urine Negative (Negative); Blood,Urine Trace (Negative); Clarity,Urine Turbid (Clear); Color,Urine Light-Yellow (Yellow); Glucose,Urine (UA) Normal (Normal); Ketones,Urine Negative (Negative); Leukocyte Esterase,Urine Negative (Negative); Mucus,Urine Few per lpf (None-Few); Nitrite,Urine Negative (Negative); PH,Urine 6.5 pH Units (5.0-8.0); Protein,Urine Trace mg/dL (Neg-Trace); RBC,Urine 0-3 per hpf (0-3); Specific Gravity,Urine 1.016 (1.010-1.025); Sperm,Urine Present (None Seen); Urobilinogen,Urine Normal (Normal)
[2020-05-07 20:49] LABS: Amphetamine Screen,Urine Positive ng/mL (Cutoff=1000); Barbiturate Screen,Urine Negative ng/mL (Cutoff=200); Benzodiazepines Screen,Urine Positive ng/mL (Cutoff=200); Cannabinoid Screen,Urine Positive ng/mL (Cutoff = 50); Cocaine Screen,Urine Negative ng/mL (Cutoff= 300); Opiate Screen,Urine Negative ng/mL (Cutoff=300); Phencyclidine Screen,Urine Negative ng/mL (Cutoff=25)
[2020-05-07] MEDS ORDERED: Artificial Tears SOLN 15 ML BOTTLE BOTH EYES PRN (22:00)
[2020-05-07] MEDS: Chlorhexidine Rinse 15 ML MOUTHWASH MM SCH (23:00)
[2020-05-07] MEDS: Artificial Tears SOLN 15 ML BOTTLE BOTH EYES SCH (23:08)
[2020-05-08] MEDS ORDERED: 0.9 % Sodium Chloride 1,000 ML ONE (01:37)
[2020-05-08] MEDS ORDERED: 0.9 % Sodium Chloride 1,000 ML IVC ONE (01:51)
[2020-05-08] MEDS: Artificial Tears SOLN 15 ML BOTTLE BOTH EYES SCH ×6 (03:04→23:04)
[2020-05-08] MEDS: Phenylephrine 10 MG in 0.9 % Sodium Chloride 250 ML IVC SCH ×3 (03:13→07:25)
[2020-05-08 04:32] LABS: VBG Ionized Calcium 1.08 mmol/L (1.15-1.35)
[2020-05-08 04:48] LABS: ABG Base Excess -6 mEq/L (-2 to 3); ABG HCO3 23 mEq/L (21-27); ABG Oxygen Saturation 100 % (95-98); ABG PCO2 53 mmHg (35-45); ABG PH 7.24 pH Units (7.32-7.45); ABG PO2 200 mmHg (85-104); ABG TCO2 24 mEq/L (20-26); Blood Gas VT 500 cc
[2020-05-08 04:56] LABS: Albumin 4.5 g/dL (3.5-5.7); Albumin/Globulin Ratio 1.2 (1.1-2.2); Bilirubin,Total 0.3 mg/dL (0.3-1.0); Calcium 9.1 mg/dL (8.6-10.3); Globulin 3.7 g/dL (2.4-3.5); Magnesium 2.7 mg/dL (1.6-2.6); Phosphorous 3.6 mg/dL (2.7-4.5); Potassium 3.9 mEq/L (3.5-5.1); Total Protein 8.2 g/dL (6.4-8.9); Troponin I 1.95 ng/mL (< 0.04)
[2020-05-08 06:07] LABS: Basophils # 0.1 K/mcL (0.0-0.2); Basophils % 0.3 %; Eosinophils # 0.1 K/mcL (0.0-0.6); Eosinophils % 0.7 %; Hematocrit 53.4 % (37.5-50.1); Hemoglobin 17.3 g/dL (12.9-16.9); Immature Granulocytes % 0.3 % (0-4); Immature Platelets 4.5 % (1.1-6.1); Lymphocytes # 1.6 K/mcL (0.6-4.6); Lymphocytes % 10.5 %; Mean Corpuscular HGB Conc 32.4 g/dL (31.6-35.5); Mean Corpuscular Hemoglobin 29.8 pg (28.0-33.3); Mean Corpuscular Volume 91.9 fL (83.0-100.0); Mean Platelet Volume 9.6 fL (9.4-12.4); Monocytes # 0.3 K/mcL (0.0-1.3); Monocytes % 1.7 %; Neutrophils # 13.1 K/mcL (1.6-8.9); Platelet Count 116 K/mcL (140-400); Red Blood Count 5.81 M/mcL (4.19-5.50); Red Cell Distribution Width 12.8 % (11.5-14.5); Segmented Neutrophils % 86.5 %; White Blood Count 15.2 K/mcL (4.3-11.1)
[2020-05-08] MEDS: *HR* Heparin 5,000 UNIT/ML VIAL SQ SCH ×3 (06:12→22:23)
[2020-05-08] MEDS: Pantoprazole 40 MG VIAL IVP SCH (08:08)
[2020-05-08] MEDS: Piperacillin/Tazobactam 3.375 GM in 0.9 % Sodium Chloride Mini Bag 100 ML IVPB SCH ×3 (08:08→23:04)
[2020-05-08] MEDS: Chlorhexidine Rinse 15 ML MOUTHWASH MM SCH ×2 (08:08→20:19)
[2020-05-08] MEDS: Phenylephrine 50 MG in 0.9 % Sodium Chloride 250 ML IVC SCH (08:10)
[2020-05-08] MEDS: Norepinephrine 4 MG/254 ML IV.SOLN IVC SCH ×2 (09:55→17:37)
[2020-05-08 15:54] LABS: ABG Base Excess -4 mEq/L (-2 to 3); ABG HCO3 22 mEq/L (21-27); ABG Oxygen Saturation 99 % (95-98); ABG PCO2 42 mmHg (35-45); ABG PH 7.33 pH Units (7.32-7.45); ABG PO2 144 mmHg (85-104); ABG TCO2 24 mEq/L (20-26); Blood Gas Modality ASSIST CONTROL; Blood Gas VT 500 cc
[2020-05-08] MEDS: EPINEPHrine 1 MG in D5% in Water 250 ML IVC SCH (18:35)
[2020-05-08] MEDS ORDERED: Ringers Solution, Lactated 1,000 ML IVC ONE (22:16)
[2020-05-08] MEDS ORDERED: Calcium Gluconate 1gm/50mL 1 GM/50 ML BAG IVPB PRN (23:55)
[2020-05-08] MEDS ORDERED: Potassium Chloride 40 MEQ/200 ML BAG IVPB PRN (23:55)
[2020-05-08] MEDS ORDERED: Potassium Phosphate 44 MEQ in 0.9 % Sodium Chloride 250 ML IVPB PRN (23:55)
[2020-05-09 00:03] LABS: ABG Base Excess -2 mEq/L (-2 to 3); ABG HCO3 24 mEq/L (21-27); ABG Oxygen Saturation 98 % (95-98); ABG PCO2 44 mmHg (35-45); ABG PH 7.35 pH Units (7.32-7.45); ABG PO2 111 mmHg (85-104); ABG TCO2 26 mEq/L (20-26); Blood Gas VT 500 cc
[2020-05-09 00:34] LABS: ABG Base Excess -2 mEq/L (-2 to 3); ABG HCO3 24 mEq/L (21-27); ABG Oxygen Saturation 100 % (95-98); ABG PCO2 45 mmHg (35-45); ABG PH 7.34 pH Units (7.32-7.45); ABG PO2 543 mmHg (85-104); ABG TCO2 26 mEq/L (20-26); Blood Gas Modality ASSIST CONTROL; Blood Gas VT 500 cc
[2020-05-09 00:47] LABS: VBG Ionized Calcium 1.17 mmol/L (1.15-1.35)
[2020-05-09 00:49] LABS: Mean Corpuscular Volume 90.5 fL (83.0-100.0)
[2020-05-09 00:51] LABS: Basophils # 0.1 K/mcL (0.0-0.2); Basophils % 0.3 %; Eosinophils # 0.3 K/mcL (0.0-0.6); Eosinophils % 2.1 %; Hematocrit 51.3 % (37.5-50.1); Hemoglobin 16.9 g/dL (12.9-16.9); INR 1.3; Immature Granulocytes % 0.4 % (0-4); Immature Platelets 7.2 % (1.1-6.1); Lymphocytes # 2.8 K/mcL (0.6-4.6); Lymphocytes % 18.7 %; Mean Corpuscular HGB Conc 32.9 g/dL (31.6-35.5); Mean Corpuscular Hemoglobin 29.8 pg (28.0-33.3); Mean Platelet Volume 10.9 fL (9.4-12.4); Monocytes # 0.5 K/mcL (0.0-1.3); Monocytes % 3.4 %; Neutrophils # 11.3 K/mcL (1.6-8.9); Platelet Count 97 K/mcL (140-400); Red Blood Count 5.67 M/mcL (4.19-5.50); Red Cell Distribution Width 13.3 % (11.5-14.5); Segmented Neutrophils % 75.1 %
[2020-05-09 00:53] LABS: Activated Partial Thrombo Time 28.8 Seconds (26.0-36.0)
[2020-05-09 01:05] LABS: Gamma Glutamyl Transpeptidase 36 Units/L (7-64); Lactate Dehydrogenase 453 Units/L (140-271)
[2020-05-09] MEDS ORDERED: 0.9 % Sodium Chloride 500 ML IVC ONE (01:19)
[2020-05-09] MEDS ORDERED: Vasopressin 40 UNIT in D5% in Water 100 ML IVC SCH (01:30)
[2020-05-09] MEDS ORDERED: Ringers Solution, Lactated 500 ML IVC ONE ×2 (01:36→02:56)
[2020-05-09 01:37] LABS: Alanine Aminotransferase 139 Units/L (7-52); Albumin 3.6 g/dL (3.5-5.7); Albumin/Globulin Ratio 1.1 (1.1-2.2); Alkaline Phosphatase 79 Units/L (34-104); Aspartate Amino Transferase 130 Units/L (13-39); BUN/Creatinine Ratio 18 (6-26); Bilirubin,Total 0.4 mg/dL (0.3-1.0); Blood Urea Nitrogen 26 mg/dL (6-20); Calcium 8.8 mg/dL (8.6-10.3); Carbon Dioxide 26 mEq/L (23-29); Chloride 124 mEq/L (98-107); Globulin 3.2 g/dL (2.4-3.5); Glucose 108 mg/dL (70-105); Osmolality,Calculated 327 (280-300); Sodium 156 mEq/L (136-145); Total Protein 6.8 g/dL (6.4-8.9); eGFR For African Americans > 60 (> 60); eGFR For Non-African Americans 53 (> 60)
[2020-05-09 01:49] LABS: Bilirubin,Direct 0.1 mg/dL (0.0-0.2)
[2020-05-09 04:02] LABS: ABG Base Excess -2 mEq/L (-2 to 3); ABG HCO3 24 mEq/L (21-27); ABG Oxygen Saturation 98 % (95-98); ABG PCO2 42 mmHg (35-45); ABG PH 7.36 pH Units (7.32-7.45); ABG PO2 115 mmHg (85-104); ABG TCO2 25 mEq/L (20-26); Blood Gas VT 500 cc
[2020-05-09 04:41] LABS: ABG Base Excess -1 mEq/L (-2 to 3); ABG HCO3 25 mEq/L (21-27); ABG Oxygen Saturation 100 % (95-98); ABG PCO2 48 mmHg (35-45); ABG PH 7.33 pH Units (7.32-7.45); ABG PO2 550 mmHg (85-104); ABG TCO2 27 mEq/L (20-26); Blood Gas VT 500 cc
[2020-05-09] MEDS ORDERED: Ringers Solution, Lactated 1,000 ML IVC ONE (04:48)
[2020-05-09] MEDS: Artificial Tears SOLN 15 ML BOTTLE BOTH EYES SCH ×2 (04:57→09:06)
[2020-05-09] MEDS: *HR* Heparin 5,000 UNIT/ML VIAL SQ SCH (05:02)
[2020-05-09 06:16] LABS: Adenovirus Not Detected (Not Detect); Bordetella Pertussis Not Detected (Not Detect); Chlamydophila pneumoniae Not Detected (Not Detect); Coronavirus 229E Not Detected (Not Detect); Coronavirus HKU1 Not Detected (Not Detect); Coronavirus NL63 Not Detected (Not Detect); Coronavirus OC43 Not Detected (Not Detect); Human Metapneumovirus Not Detected (Not Detect); Human Rhinovirus/Enterovirus Not Detected (Not Detect); Influenza A Subtype 2009 H1 Not Detected (Not Detect); Influenza B Not Detected (Not Detect); Mycoplasma pneumoniae Not Detected (Not Detect); Parainfluenza Virus 1 Not Detected (Not Detect); Parainfluenza Virus 2 Not Detected (Not Detect); Parainfluenza Virus 3 Not Detected (Not Detect); Parainfluenza Virus 4 Not Detected (Not Detect); Respiratory Syncytial Virus Not Detected (Not Detect); SARS-CoV-2 Not Detected (Not Detect)
[2020-05-09 06:38] LABS: Alanine Aminotransferase 114 Units/L (7-52); Albumin 3.3 g/dL (3.5-5.7); Albumin/Globulin Ratio 1.2 (1.1-2.2); Alkaline Phosphatase 75 Units/L (34-104); Aspartate Amino Transferase 101 Units/L (13-39); BUN/Creatinine Ratio 17 (6-26); Bilirubin,Total 0.4 mg/dL (0.3-1.0); Blood Urea Nitrogen 26 mg/dL (6-20); Calcium 8.8 mg/dL (8.6-10.3); Carbon Dioxide 26 mEq/L (23-29); Chloride 123 mEq/L (98-107); Globulin 2.8 g/dL (2.4-3.5); Glucose 113 mg/dL (70-105); Magnesium 2.4 mg/dL (1.6-2.6); Osmolality,Calculated 322 (280-300); Phosphorous 2.9 mg/dL (2.7-4.5); Sodium 153 mEq/L (136-145); Total Protein 6.1 g/dL (6.4-8.9); eGFR For African Americans > 60 (> 60); eGFR For Non-African Americans 51 (> 60)
[2020-05-09 08:08] LABS: ABG Base Excess -2 mEq/L (-2 to 3); ABG HCO3 23 mEq/L (21-27); ABG Oxygen Saturation 99 % (95-98); ABG PCO2 42 mmHg (35-45); ABG PH 7.36 pH Units (7.32-7.45); ABG PO2 119 mmHg (85-104); ABG TCO2 25 mEq/L (20-26); Blood Gas Modality ASSIST CONTROL; Blood Gas VT 500 cc
[2020-05-09 08:26] LABS: VBG Ionized Calcium 1.13 mmol/L (1.15-1.35)
[2020-05-09 08:35] LABS: Basophils % 0.2 %; Eosinophils # 0.3 K/mcL (0.0-0.6); Eosinophils % 2.2 %; Hematocrit 39.4 % (37.5-50.1); Hemoglobin 12.7 g/dL (12.9-16.9); Immature Granulocytes % 0.4 % (0-4); Immature Platelets 7.9 % (1.1-6.1); Lymphocytes # 3.1 K/mcL (0.6-4.6); Lymphocytes % 24.7 %; Mean Corpuscular HGB Conc 32.2 g/dL (31.6-35.5); Mean Corpuscular Hemoglobin 29.7 pg (28.0-33.3); Mean Corpuscular Volume 92.3 fL (83.0-100.0); Mean Platelet Volume 11.8 fL (9.4-12.4); Monocytes # 0.5 K/mcL (0.0-1.3); Neutrophils # 8.7 K/mcL (1.6-8.9); Red Blood Count 4.27 M/mcL (4.19-5.50); Red Cell Distribution Width 13.6 % (11.5-14.5); Segmented Neutrophils % 68.5 %; White Blood Count 12.7 K/mcL (4.3-11.1)
[2020-05-09 08:42] LABS: INR 1.6; Prothrombin Time 17.9 Seconds (9.4-12.1)
[2020-05-09 08:44] LABS: Platelet Count 67 K/mcL (140-400)
[2020-05-09 08:45] LABS: Activated Partial Thrombo Time 33.5 Seconds (26.0-36.0)
[2020-05-09] MEDS: Phenylephrine 50 MG in 0.9 % Sodium Chloride 250 ML IVC SCH (08:51)
[2020-05-09 08:53] LABS: Alanine Aminotransferase 83 Units/L (7-52); Albumin 2.5 g/dL (3.5-5.7); Albumin/Globulin Ratio 1.1 (1.1-2.2); Alkaline Phosphatase 54 Units/L (34-104); Aspartate Amino Transferase 68 Units/L (13-39); BUN/Creatinine Ratio 22 (6-26); Bilirubin,Total 0.3 mg/dL (0.3-1.0); Blood Urea Nitrogen 24 mg/dL (6-20); Carbon Dioxide 19 mEq/L (23-29); Chloride 130 mEq/L (98-107); Globulin 2.2 g/dL (2.4-3.5); Glucose 102 mg/dL (70-105); Lactate Dehydrogenase 260 Units/L (140-271); Magnesium 1.8 mg/dL (1.6-2.6); Osmolality,Calculated 320 (280-300); Phosphorous 2.1 mg/dL (2.7-4.5); Potassium 3.1 mEq/L (3.5-5.1); Sodium 153 mEq/L (136-145); Total Protein 4.7 g/dL (6.4-8.9); eGFR For African Americans > 60 (> 60); eGFR For Non-African Americans > 60 (> 60)
[2020-05-09 08:54] LABS: Albumin 2.8 g/dL (3.5-5.7); Albumin/Globulin Ratio 1.1 (1.1-2.2); Bilirubin,Direct 0.1 mg/dL (0.0-0.2); Bilirubin,Indirect 0.2 mg/dL (0.0-1.0); Bilirubin,Total 0.3 mg/dL (0.3-1.0); Globulin 2.6 g/dL (2.4-3.5); Total Protein 5.4 g/dL (6.4-8.9)
[2020-05-09] MEDS: Piperacillin/Tazobactam 3.375 GM in 0.9 % Sodium Chloride Mini Bag 100 ML IVPB SCH (09:05)
[2020-05-09] MEDS: Pantoprazole 40 MG VIAL IVP SCH (09:05)
[2020-05-09] MEDS: Chlorhexidine Rinse 15 ML MOUTHWASH MM SCH (09:05)
[2020-05-09 09:42] LABS: Source of Body Fluid LLL BAL; Source of Body Fluid RML BAL; Source of Body Fluid RUL BAL
[2020-05-09 10:05] VITALS: BP 119/83
[2020-05-09] MEDS ORDERED: Ringers Solution, Lactated 500 ML ONE (10:07)
[2020-05-09] MEDS ORDERED: Ringers Solution, Lactated 1,000 ML ONE (10:07)
[2020-05-09 15:41] LABS: Appearance of Body Fluid Clear (Clear); Volume of Body Fluid 17 mL
[2020-05-09 15:47] LABS: Appearance of Body Fluid Slightly Hazy (Clear); Volume of Body Fluid 17 mL
[2020-05-09 15:54] LABS: Appearance of Body Fluid Clear (Clear); Volume of Body Fluid 9 mL
[2020-05-11 05:43] LABS: Influenza A PCR Body Fluid NOT DETECTED; Influenza B PCR Body Fluid NOT DETECTED; RVP Body Fluid Source LLL BAL; RVP Body Fluid Source RML BAL; RVP Body Fluid Source RUL BAL
[2020-05-11 11:35] LABS: RSV PCR Body Fluid NOT DETECTED
[2020-05-11 23:44] LABS: HSV Source LLL BAL; HSV Source RML BAL; HSV Source RUL BAL
== END 2020-05-09 08:03 | disposition expired | DRG 812 ==
LOC: EMEROOARM 17:55 → ICNU 20:44
PROVIDERS: ADMIT Family Medicine; ATTEND Family Medicine

== ENCOUNTER 2020-05-08 21:22 | Inpatient (IN) ==
[2020-05-09] MEDS ORDERED: Ipratropium/Albuterol Neb 3 ML ONE (10:41)
[2020-05-09] MEDS: Ipratropium/Albuterol Neb 3 ML IH SCH ×4 (10:50→23:46)
[2020-05-09] MEDS ORDERED: Hydrocortisone Sodium Succ 100 MG/2 ML VIAL IVP ONE (10:50)
[2020-05-09] MEDS ORDERED: Ringers Solution, Lactated 1,000 ML ONE ×3 (11:42→22:16)
[2020-05-09 12:41] LABS: ABG Base Excess -3 mEq/L (-2 to 3); ABG HCO3 24 mEq/L (21-27); ABG Oxygen Saturation 100 % (95-98); ABG PCO2 44 mmHg (35-45); ABG PH 7.33 pH Units (7.32-7.45); ABG PO2 255 mmHg (85-104); ABG TCO2 25 mEq/L (20-26)
[2020-05-09 12:54] LABS: Bilirubin,Urine Negative (Negative); Blood,Urine Negative (Negative); Clarity,Urine Clear (Clear); Color,Urine Yellow (Yellow); Glucose,Urine (UA) Normal (Normal); Ketones,Urine Negative (Negative); Leukocyte Esterase,Urine Negative (Negative); Nitrite,Urine Negative (Negative); PH,Urine 5.5 pH Units (5.0-8.0); Protein,Urine 30 mg/dL (Neg-Trace); Specific Gravity,Urine 1.027 (1.010-1.025); Urobilinogen,Urine Normal (Normal)
[2020-05-09 12:54] LABS: INR 1.6; Prothrombin Time 17.9 Seconds (9.4-12.1)
[2020-05-09 12:56] LABS: Activated Partial Thrombo Time 34.3 Seconds (26.0-36.0)
[2020-05-09 13:03] LABS: Cholesterol 71 mg/dL (< 200); Gamma Glutamyl Transpeptidase 20 Units/L (7-64)
[2020-05-09 13:12] LABS: Alanine Aminotransferase 56 Units/L (7-52); Albumin 1.9 g/dL (3.5-5.7); Albumin/Globulin Ratio 1.3 (1.1-2.2); Alkaline Phosphatase 41 Units/L (34-104); Amylase 154 Units/L (29-103); Aspartate Amino Transferase 44 Units/L (13-39); BUN/Creatinine Ratio 24 (6-26); Bilirubin,Direct 0.1 mg/dL (0.0-0.2); Bilirubin,Indirect 0.2 mg/dL (0.0-1.0); Bilirubin,Total 0.3 mg/dL (0.3-1.0); Blood Urea Nitrogen 20 mg/dL (6-20); Calcium 5.8 mg/dL (8.6-10.3); Carbon Dioxide 19 mEq/L (23-29); Chloride 132 mEq/L (98-107); Creatine Kinase 243 Units/L (30-223); Globulin 1.5 g/dL (2.4-3.5); Glucose 88 mg/dL (70-105); Lactate Dehydrogenase 184 Units/L (140-271); Lipase 11 Units/L (11-82); Magnesium 1.4 mg/dL (1.6-2.6); Osmolality,Calculated 318 (280-300); Phosphorous 1.9 mg/dL (2.7-4.5); Potassium 2.6 mEq/L (3.5-5.1); Sodium 153 mEq/L (136-145); Total Protein 3.4 g/dL (6.4-8.9); Troponin I 0.44 ng/mL (< 0.04); eGFR For African Americans > 60 (> 60); eGFR For Non-African Americans > 60 (> 60)
[2020-05-09] MEDS ORDERED: Calcium Chloride 1,000 MG in 0.9 % Sodium Chloride 100 ML IVPB ONE (13:13)
[2020-05-09] MEDS ORDERED: Ringers Solution, Lactated 1,000 ML IVC ONE ×2 (13:34→22:29)
[2020-05-09] MEDS: Norepinephrine 4 MG/254 ML IV.SOLN IVC SCH (13:51)
[2020-05-09] MEDS: Vasopressin 40 UNIT in D5% in Water 100 ML IVC SCH (13:52)
[2020-05-09 14:17] LABS: Hemoglobin 11.8 g/dL (12.9-16.9); Mean Corpuscular Hemoglobin 29.9 pg (28.0-33.3)
[2020-05-09 14:19] LABS: Hematocrit 36.6 % (37.5-50.1); Immature Platelets 10.2 % (1.1-6.1); Mean Corpuscular HGB Conc 32.2 g/dL (31.6-35.5); Mean Corpuscular Volume 92.7 fL (83.0-100.0); Mean Platelet Volume 12.2 fL (9.4-12.4); Red Blood Count 3.95 M/mcL (4.19-5.50); Red Cell Distribution Width 13.6 % (11.5-14.5)
[2020-05-09] MEDS ORDERED: Perflutren Lipid Microsphere 1.3 ML in 0.9 % Sodium Chloride 8.7 ML IVP PRN (14:22)
[2020-05-09] MEDS: Albumin Human 5% 12.5 GM/250 ML IV.SOLN IVC SCH ×2 (15:09→17:37)
[2020-05-09] MEDS: Piperacillin/Tazobactam 3.375 GM in 0.9 % Sodium Chloride Mini Bag 100 ML IVPB SCH ×2 (15:12→21:10)
[2020-05-09] MEDS ORDERED: Potassium Phosphate 44 MEQ in 0.9 % Sodium Chloride 250 ML IVPB ONE (15:22)
[2020-05-09] MEDS ORDERED: Magnesium Sulfate 1 GM/102 ML PIGGYBACK IVPB ONE (15:22)
[2020-05-09 16:08] LABS: ABG Base Excess 0 mEq/L (-2 to 3); ABG HCO3 26 mEq/L (21-27); ABG Oxygen Saturation 98 % (95-98); ABG PCO2 45 mmHg (35-45); ABG PH 7.37 pH Units (7.32-7.45); ABG PO2 102 mmHg (85-104); ABG TCO2 27 mEq/L (20-26); Blood Gas Modality ASSIST CONTROL; Blood Gas VT 500 cc
[2020-05-09 16:51] LABS: Basophils % 0.2 %; Red Cell Distribution Width 13.8 % (11.5-14.5)
[2020-05-09 16:53] LABS: Eosinophils # 0.1 K/mcL (0.0-0.6); Eosinophils % 0.8 %; Hematocrit 38.3 % (37.5-50.1); Hemoglobin 12.6 g/dL (12.9-16.9); Immature Granulocytes % 0.4 % (0-4); Immature Platelets 9.5 % (1.1-6.1); Lymphocytes # 1.1 K/mcL (0.6-4.6); Lymphocytes % 8.5 %; Mean Corpuscular HGB Conc 32.9 g/dL (31.6-35.5); Mean Corpuscular Hemoglobin 30.2 pg (28.0-33.3); Mean Corpuscular Volume 91.8 fL (83.0-100.0); Mean Platelet Volume 12.5 fL (9.4-12.4); Monocytes # 0.5 K/mcL (0.0-1.3); Monocytes % 3.7 %; Neutrophils # 11.1 K/mcL (1.6-8.9); Red Blood Count 4.17 M/mcL (4.19-5.50); Segmented Neutrophils % 86.4 %; White Blood Count 12.8 K/mcL (4.3-11.1)
[2020-05-09 16:58] LABS: Platelet Count 47 K/mcL (140-400)
[2020-05-09 17:05] LABS: INR 1.4; Prothrombin Time 15.8 Seconds (9.4-12.1)
[2020-05-09 17:06] LABS: Alanine Aminotransferase 75 Units/L (7-52); Albumin 2.6 g/dL (3.5-5.7); Albumin/Globulin Ratio 1.1 (1.1-2.2); Alkaline Phosphatase 59 Units/L (34-104); Amylase 194 Units/L (29-103); Aspartate Amino Transferase 58 Units/L (13-39); Bilirubin,Direct 0.2 mg/dL (0.0-0.2); Bilirubin,Indirect 0.2 mg/dL (0.0-1.0); Bilirubin,Total 0.4 mg/dL (0.3-1.0); Globulin 2.3 g/dL (2.4-3.5); Lactate Dehydrogenase 237 Units/L (140-271); Lipase 14 Units/L (11-82); Total Protein 4.9 g/dL (6.4-8.9)
[2020-05-09 17:07] LABS: Activated Partial Thrombo Time 32.3 Seconds (26.0-36.0)
[2020-05-09 17:16] LABS: Estimated Average Glucose 140 mg/dl; Hemoglobin A1C 6.5 %
[2020-05-09 18:08] LABS: BUN/Creatinine Ratio 22 (6-26); Blood Urea Nitrogen 24 mg/dL (6-20); Calcium 8.5 mg/dL (8.6-10.3); Carbon Dioxide 23 mEq/L (23-29); Chloride 125 mEq/L (98-107); Glucose 107 mg/dL (70-105); Osmolality,Calculated 323 (280-300); Potassium 3.8 mEq/L (3.5-5.1); Sodium 154 mEq/L (136-145); eGFR For African Americans > 60 (> 60); eGFR For Non-African Americans > 60 (> 60)
[2020-05-09] MEDS: Hydrocortisone Sodium Succ 100 MG/2 ML VIAL IVP SCH (18:13)
[2020-05-09 18:16] LABS: Troponin I 0.45 ng/mL (< 0.04)
[2020-05-09 19:09] LABS: Creatine Kinase 333 Units/L (30-223); Magnesium 1.8 mg/dL (1.6-2.6); Phosphorous 2.2 mg/dL (2.7-4.5)
[2020-05-09 19:55] LABS: ABG Base Excess 0 mEq/L (-2 to 3); ABG HCO3 25 mEq/L (21-27); ABG Oxygen Saturation 99 % (95-98); ABG PCO2 41 mmHg (35-45); ABG PH 7.39 pH Units (7.32-7.45); ABG PO2 120 mmHg (85-104); ABG TCO2 26 mEq/L (20-26); Blood Gas VT 500 cc
[2020-05-09 20:38] LABS: BUN/Creatinine Ratio 18 (6-26); Blood Urea Nitrogen 23 mg/dL (6-20); Calcium 9.3 mg/dL (8.6-10.3); Carbon Dioxide 25 mEq/L (23-29); Chloride 122 mEq/L (98-107); Creatine Kinase 346 Units/L (30-223); Glucose 126 mg/dL (70-105); Magnesium 2.1 mg/dL (1.6-2.6); Osmolality,Calculated 321 (280-300); Phosphorous 3.3 mg/dL (2.7-4.5); Potassium 4.1 mEq/L (3.5-5.1); Sodium 153 mEq/L (136-145); Troponin I 0.32 ng/mL (< 0.04); eGFR For African Americans > 60 (> 60); eGFR For Non-African Americans > 60 (> 60)
[2020-05-09 23:52] LABS: ABG Base Excess -2 mEq/L (-2 to 3); ABG HCO3 23 mEq/L (21-27); ABG Oxygen Saturation 99 % (95-98); ABG PCO2 38 mmHg (35-45); ABG PH 7.39 pH Units (7.32-7.45); ABG PO2 118 mmHg (85-104); ABG TCO2 24 mEq/L (20-26); Blood Gas VT 500 cc
[2020-05-10] MEDS ORDERED: Albumin Human 5% 12.5 GM/250 ML IV.SOLN IVPB ONE (00:03)
[2020-05-10 00:10] LABS: Albumin 2.9 g/dL (3.5-5.7); Albumin/Globulin Ratio 1.3 (1.1-2.2); Bilirubin,Direct 0.2 mg/dL (0.0-0.2); Bilirubin,Indirect 0.4 mg/dL (0.0-1.0); Bilirubin,Total 0.6 mg/dL (0.3-1.0); Globulin 2.2 g/dL (2.4-3.5); Total Protein 5.1 g/dL (6.4-8.9)
[2020-05-10 00:12] LABS: BUN/Creatinine Ratio 19 (6-26); Blood Urea Nitrogen 23 mg/dL (6-20); Calcium 9.1 mg/dL (8.6-10.3); Carbon Dioxide 22 mEq/L (23-29); Chloride 122 mEq/L (98-107); Creatine Kinase 284 Units/L (30-223); Glucose 163 mg/dL (70-105); Magnesium 1.9 mg/dL (1.6-2.6); Osmolality,Calculated 321 (280-300); Phosphorous 2.5 mg/dL (2.7-4.5); Potassium 3.6 mEq/L (3.5-5.1); Sodium 152 mEq/L (136-145); eGFR For African Americans > 60 (> 60); eGFR For Non-African Americans > 60 (> 60)
[2020-05-10] MEDS ORDERED: Potassium Phosphate 44 MEQ in 0.9 % Sodium Chloride 250 ML IVPB ONE (00:38)
[2020-05-10] MEDS: Ipratropium/Albuterol Neb 3 ML IH SCH ×6 (03:45→23:37)
[2020-05-10] MEDS: Hydrocortisone Sodium Succ 100 MG/2 ML VIAL IVP SCH ×3 (03:47→18:30)
[2020-05-10] MEDS: Piperacillin/Tazobactam 3.375 GM in 0.9 % Sodium Chloride Mini Bag 100 ML IVPB SCH ×4 (03:47→20:38)
[2020-05-10 03:52] LABS: ABG Base Excess -1 mEq/L (-2 to 3); ABG HCO3 26 mEq/L (21-27); ABG Oxygen Saturation 97 % (95-98); ABG PCO2 50 mmHg (35-45); ABG PH 7.32 pH Units (7.32-7.45); ABG PO2 99 mmHg (85-104); ABG TCO2 27 mEq/L (20-26); Blood Gas VT 500 cc
[2020-05-10 05:03] LABS: BUN/Creatinine Ratio 22 (6-26); Blood Urea Nitrogen 24 mg/dL (6-20); Carbon Dioxide 25 mEq/L (23-29); Chloride 123 mEq/L (98-107); Creatine Kinase 258 Units/L (30-223); Glucose 157 mg/dL (70-105); Magnesium 2.7 mg/dL (1.6-2.6); Osmolality,Calculated 323 (280-300); Phosphorous 4.6 mg/dL (2.7-4.5); Potassium 3.7 mEq/L (3.5-5.1); Sodium 153 mEq/L (136-145); eGFR For African Americans > 60 (> 60); eGFR For Non-African Americans > 60 (> 60)
[2020-05-10 05:07] LABS: Troponin I 0.15 ng/mL (< 0.04)
[2020-05-10] MEDS: Vasopressin 40 UNIT in D5% in Water 100 ML IVC SCH (07:25)
[2020-05-10] MEDS: Norepinephrine 4 MG/254 ML IV.SOLN IVC SCH (07:38)
[2020-05-10 08:30] LABS: INR 1.3; Prothrombin Time 14.7 Seconds (9.4-12.1)
[2020-05-10 08:32] LABS: Activated Partial Thrombo Time 32.3 Seconds (26.0-36.0)
[2020-05-10 08:50] LABS: ABG Base Excess 0 mEq/L (-2 to 3); ABG HCO3 26 mEq/L (21-27); ABG Oxygen Saturation 98 % (95-98); ABG PCO2 47 mmHg (35-45); ABG PH 7.36 pH Units (7.32-7.45); ABG PO2 107 mmHg (85-104); ABG TCO2 28 mEq/L (20-26); Blood Gas Modality ASSIST CONTROL; Blood Gas VT 500 cc
[2020-05-10 09:20] LABS: Alanine Aminotransferase 58 Units/L (7-52); Albumin 3.1 g/dL (3.5-5.7); Albumin/Globulin Ratio 1.2 (1.1-2.2); Alkaline Phosphatase 54 Units/L (34-104); Amylase 114 Units/L (29-103); Aspartate Amino Transferase 37 Units/L (13-39); BUN/Creatinine Ratio 24 (6-26); Bilirubin,Direct 0.2 mg/dL (0.0-0.2); Bilirubin,Indirect 0.3 mg/dL (0.0-1.0); Bilirubin,Total 0.5 mg/dL (0.3-1.0); Blood Urea Nitrogen 25 mg/dL (6-20); Calcium 9.1 mg/dL (8.6-10.3); Carbon Dioxide 25 mEq/L (23-29); Chloride 124 mEq/L (98-107); Creatine Kinase 210 Units/L (30-223); Globulin 2.5 g/dL (2.4-3.5); Glucose 167 mg/dL (70-105); Lactate Dehydrogenase 202 Units/L (140-271); Lipase 8 Units/L (11-82); Magnesium 2.5 mg/dL (1.6-2.6); Osmolality,Calculated 324 (280-300); Phosphorous 3.8 mg/dL (2.7-4.5); Potassium 3.7 mEq/L (3.5-5.1); Sodium 153 mEq/L (136-145); Total Protein 5.6 g/dL (6.4-8.9); Troponin I 0.14 ng/mL (< 0.04); eGFR For African Americans > 60 (> 60); eGFR For Non-African Americans > 60 (> 60)
[2020-05-10 10:36] LABS: Basophils % 0.1 %; Mean Corpuscular Volume 93.6 fL (83.0-100.0); Red Cell Distribution Width 13.9 % (11.5-14.5)
[2020-05-10 10:39] LABS: Hematocrit 33.7 % (37.5-50.1); Immature Granulocytes % 0.7 % (0-4); Immature Platelets 15.4 % (1.1-6.1); Lymphocytes # 1.6 K/mcL (0.6-4.6); Lymphocytes % 9.1 %; Mean Platelet Volume 13.6 fL (9.4-12.4); Monocytes # 0.4 K/mcL (0.0-1.3); Monocytes % 2.5 %; Neutrophils # 15.3 K/mcL (1.6-8.9); Segmented Neutrophils % 87.6 %; White Blood Count 17.5 K/mcL (4.3-11.1)
[2020-05-10 11:02] LABS: Platelet Count 32 K/mcL (140-400)
[2020-05-10 11:03] LABS: Hemoglobin 10.8 g/dL (12.9-16.9)
[2020-05-10 11:06] LABS: Large Platelets Present (Not Present); Platelet Estimate Marked Decrease (Normal); Reactive Lymphocytes Present (Not Present)
[2020-05-10] MEDS ORDERED: Calcium Gluconate 1gm/50mL 1 GM/50 ML BAG IVPB PRN (11:29)
[2020-05-10] MEDS ORDERED: Potassium Chloride 40 MEQ/200 ML BAG IVPB PRN (11:36)
[2020-05-10 11:45] LABS: ABG Base Excess -1 mEq/L (-2 to 3); ABG HCO3 25 mEq/L (21-27); ABG Oxygen Saturation 98 % (95-98); ABG PCO2 45 mmHg (35-45); ABG PH 7.35 pH Units (7.32-7.45); ABG PO2 103 mmHg (85-104); ABG TCO2 26 mEq/L (20-26); Blood Gas Modality ASSIST CONTROL; Blood Gas VT 500 cc
[2020-05-10] MEDS ORDERED: Albumin 25% 25gram/100mL 25 GM/100 ML IV.SOLN IVPB ONE (11:50)
[2020-05-10] MEDS ORDERED: Potassium Phosphate 44 MEQ in 0.9 % Sodium Chloride 250 ML IVPB PRN (12:15)
[2020-05-10 12:27] LABS: ABG Ionized Calcium 1.29 mmol/L (1.15-1.35)
[2020-05-10 13:07] LABS: BUN/Creatinine Ratio 29 (6-26); Blood Urea Nitrogen 28 mg/dL (6-20); Calcium 9.3 mg/dL (8.6-10.3); Carbon Dioxide 23 mEq/L (23-29); Chloride 124 mEq/L (98-107); Glucose 165 mg/dL (70-105); Osmolality,Calculated 327 (280-300); Potassium 3.7 mEq/L (3.5-5.1); Sodium 154 mEq/L (136-145); eGFR For African Americans > 60 (> 60); eGFR For Non-African Americans > 60 (> 60)
[2020-05-10 16:02] LABS: ABG Base Excess 1 mEq/L (-2 to 3); ABG HCO3 27 mEq/L (21-27); ABG Oxygen Saturation 96 % (95-98); ABG PCO2 49 mmHg (35-45); ABG PH 7.35 pH Units (7.32-7.45); ABG PO2 88 mmHg (85-104); ABG TCO2 29 mEq/L (20-26); Blood Gas Modality ASSIST CONTROL; Blood Gas VT 500 cc
[2020-05-10 16:10] LABS: Basophils % 0.1 %; Immature Granulocytes % 1.4 % (0-4); Monocytes % 2.5 %
[2020-05-10 16:12] LABS: Hemoglobin 10.6 g/dL (12.9-16.9); Immature Platelets 15.4 % (1.1-6.1); Lymphocytes # 1.4 K/mcL (0.6-4.6); Lymphocytes % 7.2 %; Mean Corpuscular HGB Conc 32.1 g/dL (31.6-35.5); Mean Corpuscular Hemoglobin 30.2 pg (28.0-33.3); Monocytes # 0.5 K/mcL (0.0-1.3); Red Blood Count 3.51 M/mcL (4.19-5.50); Segmented Neutrophils % 88.8 %; White Blood Count 19.1 K/mcL (4.3-11.1)
[2020-05-10 16:21] LABS: INR 1.2; Prothrombin Time 13.7 Seconds (9.4-12.1)
[2020-05-10 16:24] LABS: Activated Partial Thrombo Time 30.2 Seconds (26.0-36.0)
[2020-05-10 16:32] LABS: Platelet Count 30 K/mcL (140-400)
[2020-05-10 16:35] LABS: Alanine Aminotransferase 54 Units/L (7-52); Albumin 3.6 g/dL (3.5-5.7); Albumin/Globulin Ratio 1.4 (1.1-2.2); Alkaline Phosphatase 57 Units/L (34-104); Amylase 80 Units/L (29-103); Aspartate Amino Transferase 30 Units/L (13-39); BUN/Creatinine Ratio 28 (6-26); Bilirubin,Direct 0.1 mg/dL (0.0-0.2); Bilirubin,Indirect 0.3 mg/dL (0.0-1.0); Bilirubin,Total 0.4 mg/dL (0.3-1.0); Blood Urea Nitrogen 28 mg/dL (6-20); Calcium 9.3 mg/dL (8.6-10.3); Carbon Dioxide 25 mEq/L (23-29); Chloride 122 mEq/L (98-107); Globulin 2.5 g/dL (2.4-3.5); Glucose 163 mg/dL (70-105); Lactate Dehydrogenase 197 Units/L (140-271); Lipase 8 Units/L (11-82); Magnesium 2.5 mg/dL (1.6-2.6); Osmolality,Calculated 327 (280-300); Phosphorous 3.8 mg/dL (2.7-4.5); Potassium 3.7 mEq/L (3.5-5.1); Sodium 154 mEq/L (136-145); Total Protein 6.1 g/dL (6.4-8.9); eGFR For African Americans > 60 (> 60); eGFR For Non-African Americans > 60 (> 60)
[2020-05-10 17:27] LABS: Troponin I 0.11 ng/mL (< 0.04)
[2020-05-10 18:35] LABS: Bilirubin,Urine Negative (Negative); Blood,Urine Moderate (Negative); Clarity,Urine Turbid (Clear); Color,Urine Yellow (Yellow); Glucose,Urine (UA) Normal (Normal); Hyaline Casts,Urine Few per lpf (None Seen); Ketones,Urine Trace mg/dL (Negative); Leukocyte Esterase,Urine Negative (Negative); Mucus,Urine Few per lpf (None-Few); Nitrite,Urine Negative (Negative); PH,Urine 5.5 pH Units (5.0-8.0); Protein,Urine 70 mg/dL (Neg-Trace); RBC,Urine 30-50 per hpf (0-3); Renal Epithelial Cells,Urine Few per hpf (None-Few); Specific Gravity,Urine > 1.030 (1.010-1.025); Squamous Epithelial Cell,Urine Few per hpf (None-Few); Uric Acid Crystals,Urine Present; Urobilinogen,Urine Normal (Normal); White Blood Cell Casts,Urine Moderate per lpf (None Seen)
[2020-05-10 19:32] LABS: Adenovirus Not Detected (Not Detect); Bordetella Pertussis Not Detected (Not Detect); Chlamydophila pneumoniae Not Detected (Not Detect); Coronavirus 229E Not Detected (Not Detect); Coronavirus HKU1 Not Detected (Not Detect); Coronavirus NL63 Not Detected (Not Detect); Coronavirus OC43 Not Detected (Not Detect); Human Metapneumovirus Not Detected (Not Detect); Human Rhinovirus/Enterovirus Not Detected (Not Detect); Influenza A Subtype 2009 H1 Not Detected (Not Detect); Influenza B Not Detected (Not Detect); Mycoplasma pneumoniae Not Detected (Not Detect); Parainfluenza Virus 1 Not Detected (Not Detect); Parainfluenza Virus 2 Not Detected (Not Detect); Parainfluenza Virus 3 Not Detected (Not Detect); Parainfluenza Virus 4 Not Detected (Not Detect); Respiratory Syncytial Virus Not Detected (Not Detect); SARS-CoV-2 Not Detected (Not Detect)
[2020-05-10 20:31] LABS: VBG Ionized Calcium 1.24 mmol/L (1.15-1.35)
[2020-05-10 20:47] LABS: BUN/Creatinine Ratio 27 (6-26); Blood Urea Nitrogen 26 mg/dL (6-20); Calcium 9.3 mg/dL (8.6-10.3); Carbon Dioxide 27 mEq/L (23-29); Chloride 122 mEq/L (98-107); Glucose 168 mg/dL (70-105); Magnesium 2.5 mg/dL (1.6-2.6); Osmolality,Calculated 325 (280-300); Phosphorous 4.1 mg/dL (2.7-4.5); Sodium 153 mEq/L (136-145); eGFR For African Americans > 60 (> 60); eGFR For Non-African Americans > 60 (> 60)
[2020-05-10 21:41] LABS: Hematocrit 33.1 % (37.5-50.1); Mean Corpuscular Volume 95.4 fL (83.0-100.0); Red Blood Count 3.47 M/mcL (4.19-5.50)
[2020-05-10 21:43] LABS: Hemoglobin 10.3 g/dL (12.9-16.9); Immature Platelets 10.6 % (1.1-6.1); Mean Corpuscular HGB Conc 31.1 g/dL (31.6-35.5); Mean Corpuscular Hemoglobin 29.7 pg (28.0-33.3); Mean Platelet Volume 11.4 fL (9.4-12.4); Red Cell Distribution Width 14.1 % (11.5-14.5); White Blood Count 18.3 K/mcL (4.3-11.1)
[2020-05-10] MEDS ORDERED: 0.9 % Sodium Chloride 250 ML ONE (23:43)
[2020-05-10 23:45] LABS: ABG Base Excess 1 mEq/L (-2 to 3); ABG HCO3 28 mEq/L (21-27); ABG Oxygen Saturation 99 % (95-98); ABG PCO2 52 mmHg (35-45); ABG PH 7.34 pH Units (7.32-7.45); ABG PO2 128 mmHg (85-104); ABG TCO2 29 mEq/L (20-26); Blood Gas VT 500 cc
[2020-05-11 00:30] LABS: ABG Ionized Calcium 1.25 mmol/L (1.15-1.35)
[2020-05-11] MEDS ORDERED: *HR* Rocuronium Bromide 50 MG/5 ML VIAL ONE ×2 (00:30→01:41)
[2020-05-11] MEDS ORDERED: *HR* Propofol 200 MG/20 ML VIAL IVP ONE (00:31)
[2020-05-11 00:38] LABS: INR 1.2; Prothrombin Time 13.3 Seconds (9.4-12.1)
[2020-05-11 00:40] LABS: Activated Partial Thrombo Time 29.3 Seconds (26.0-36.0)
[2020-05-11 00:45] LABS: Amylase 62 Units/L (29-103); Lactate Dehydrogenase 222 Units/L (140-271); Lipase 7 Units/L (11-82)
[2020-05-11 00:53] LABS: Alanine Aminotransferase 50 Units/L (7-52); Albumin 3.6 g/dL (3.5-5.7); Albumin/Globulin Ratio 1.3 (1.1-2.2); Alkaline Phosphatase 63 Units/L (34-104); Aspartate Amino Transferase 27 Units/L (13-39); BUN/Creatinine Ratio 29 (6-26); Bilirubin,Direct 0.1 mg/dL (0.0-0.2); Bilirubin,Indirect 0.2 mg/dL (0.0-1.0); Bilirubin,Total 0.3 mg/dL (0.3-1.0); Blood Urea Nitrogen 28 mg/dL (6-20); Calcium 9.2 mg/dL (8.6-10.3); Carbon Dioxide 27 mEq/L (23-29); Chloride 121 mEq/L (98-107); Creatine Kinase 230 Units/L (30-223); Globulin 2.7 g/dL (2.4-3.5); Glucose 181 mg/dL (70-105); Magnesium 2.5 mg/dL (1.6-2.6); Osmolality,Calculated 326 (280-300); Phosphorous 3.4 mg/dL (2.7-4.5); Potassium 3.9 mEq/L (3.5-5.1); Sodium 153 mEq/L (136-145); Total Protein 6.3 g/dL (6.4-8.9); Troponin I 0.13 ng/mL (< 0.04); eGFR For African Americans > 60 (> 60); eGFR For Non-African Americans > 60 (> 60)
[2020-05-11] MEDS ORDERED: Ringers Solution, Lactated 1,000 ML ONE (01:12)
[2020-05-11] MEDS: Ipratropium/Albuterol Neb 3 ML IH SCH (03:33)
[2020-05-11 04:34] VITALS: BP 118/78
== END 2020-05-11 04:30 | disposition expired | DRG 81 ==
LOC: ICNU 21:41
PROVIDERS: ADMIT Family Medicine; ATTEND Family Medicine